=== PATIENT | female | born 1945 | race Caucasian/White ===

== ENCOUNTER → 2020-07-25 09:29 | Outpatient (BNVA) | payer MEDICARE, SELFPAY | PROVIDERS: PCP Internal Medicine; Visit Provider Internal Medicine | DX: J44.9 Chronic obstructive pulmonary disease, unspecified (principal); J30.9 Allergic rhinitis, unspecified | CPT/HCPCS: 99212 ==

== ENCOUNTER → 2020-11-07 09:30 | Outpatient (BNVA) | payer MEDICARE, SELFPAY | PROVIDERS: PCP Internal Medicine; Visit Provider Internal Medicine | DX: J44.9 Chronic obstructive pulmonary disease, unspecified (principal); J30.9 Allergic rhinitis, unspecified; Z79.899 Other long term (current) drug therapy | CPT/HCPCS: 99212 ==

== ENCOUNTER 2020-11-21 09:43 | Outpatient (REF) | payer MEDICARE, SELFPAY ==
--- NOTE | ~2020-11-21 | XR_ITS ---
EXAMINATION: XR CHEST CLINICAL INFORMATION: Bronchiectasis, uncomplicated. COMPARISON: Chest done on 09/29/2019. TECHNIQUE: 2 views of the chest were obtained. FINDINGS: Peribronchial thickening and nodularities are present at both mid to lower and right upper lung field, appears similar to prior study. No dense airspace consolidation. The cardiac mediastinal silhouette is within normal limit. No evidence of any pleural effusion or pneumothorax. XR/XR chest 2V IMPRESSION: Abnormal radiographs of the chest showing peribronchial thickening and nodularity, appear similar to prior study dated 09/29/2019.
== END 2020-11-21 09:44 | disposition home or self-care (01) ==
LOC: HO.XRAY 09:43
PROVIDERS: PCP Internal Medicine; Visit Provider Internal Medicine
DX: J44.9 Chronic obstructive pulmonary disease, unspecified (principal); J30.9 Allergic rhinitis, unspecified; Z79.899 Other long term (current) drug therapy
CPT/HCPCS: 71046; 99212

== ENCOUNTER → 2021-01-16 09:58 | Outpatient (BNVA) | payer MEDICARE, SELFPAY | PROVIDERS: PCP Physician Assistant Medical; Visit Provider Internal Medicine | DX: J44.9 Chronic obstructive pulmonary disease, unspecified (principal); J47.9 Bronchiectasis, uncomplicated; J30.9 Allergic rhinitis, unspecified | CPT/HCPCS: 99212 ==

== ENCOUNTER → 2021-03-16 09:27 | Outpatient (BNVA) | payer MEDICARE, SELFPAY | PROVIDERS: PCP Physician Assistant Medical; Visit Provider Internal Medicine | DX: J42 Unspecified chronic bronchitis (principal); J47.9 Bronchiectasis, uncomplicated; J30.9 Allergic rhinitis, unspecified | CPT/HCPCS: 99212 ==

== ENCOUNTER → 2021-05-11 10:19 | Outpatient (BNVA) | payer MEDICARE, SELFPAY | PROVIDERS: PCP Physician Assistant Medical; Visit Provider Internal Medicine | DX: J30.9 Allergic rhinitis, unspecified (principal); J47.9 Bronchiectasis, uncomplicated; J44.1 Chronic obstructive pulmonary disease with (acute) exacerbation | CPT/HCPCS: 99212 ==

== ENCOUNTER → 2021-06-07 09:43 | Outpatient (BNVA) | payer MEDICARE, SELFPAY | PROVIDERS: PCP Physician Assistant Medical; Visit Provider Internal Medicine | DX: J44.1 Chronic obstructive pulmonary disease with (acute) exacerbation (principal); J42 Unspecified chronic bronchitis; J47.9 Bronchiectasis, uncomplicated; J30.9 Allergic rhinitis, unspecified | CPT/HCPCS: 99212 ==

== ENCOUNTER → 2021-11-14 11:25 | Outpatient (BNVA) | payer MEDICARE, SELFPAY | PROVIDERS: PCP Physician Assistant Medical; Visit Provider Internal Medicine | DX: J43.9 Emphysema, unspecified (principal); J20.9 Acute bronchitis, unspecified; J47.9 Bronchiectasis, uncomplicated; J01.90 Acute sinusitis, unspecified | CPT/HCPCS: 99212 ==

== ENCOUNTER → 2021-12-05 09:32 | Outpatient (BNVA) | payer MEDICARE, SELFPAY | PROVIDERS: PCP Physician Assistant Medical; Visit Provider Internal Medicine | DX: J44.9 Chronic obstructive pulmonary disease, unspecified (principal); J47.9 Bronchiectasis, uncomplicated; J30.9 Allergic rhinitis, unspecified; Z79.899 Other long term (current) drug therapy | CPT/HCPCS: 99212 ==

== ENCOUNTER → 2022-06-12 09:24 | Outpatient (BNVA) | payer MEDICARE, SELFPAY | PROVIDERS: PCP Physician Assistant Medical; Visit Provider Internal Medicine | DX: J47.9 Bronchiectasis, uncomplicated (principal); J30.9 Allergic rhinitis, unspecified | CPT/HCPCS: 99212 ==

== ENCOUNTER 2022-12-04 09:23 | Outpatient (REF) | payer MEDICARE, SELFPAY ==
[2022-12-04 12:28] LABS: Alanine Aminotransferase 21 U/L (0-31); Albumin Level 4.1 g/dL (3.5-5.0); Alkaline Phosphatase 80 U/L (39-117); Anion Gap 15 (12-20); Aspartate Amino Transferase 26 U/L (5-31); Bilirubin Total 0.7 mg/dL (0.0-1.0); Blood Urea Nitrogen 12 mg/dL (9-16); Calcium 9.5 mg/dL (8.4-10.2); Carbon Dioxide 27 mmol/L (22-29); Chloride 103 mmol/L (96-108); Estimated Glomerular Filt Rate > 60; Glucose Random 87 mg/dL (60-115); Potassium 4.5 mmol/L (3.3-5.1); Sodium 140 mmol/L (135-145); Total Protein 7.3 g/dL (6.5-8.0)
[2022-12-04 12:50] LABS: Folate > 20.0 ng/mL (> or = 4.0); T4 Thyroxine 4.5 ug/dL (4.5-12.0); Thyroid Stimulating Hormone 2.33 uIU/mL (0.32-4.0); Vitamin B12 1043 pg/mL (200-900)
[2022-12-10 00:48] LABS: Methylmalonic Acid 112 nmol/L (87-318)
== END 2022-12-04 09:24 | disposition home or self-care (01) ==
LOC: HO.LAB 09:23
PROVIDERS: PCP Physician Assistant Medical; Visit Provider Psychiatry & Neurology Neurology
DX: G31.84 Mild cognitive impairment of uncertain or unknown etiology (principal)
CPT/HCPCS: 36415; 80053; 82607; 82746; 83921; 84436; 84443

== ENCOUNTER → 2022-12-05 09:38 | Outpatient (BNVA) | payer MEDICARE, SELFPAY | PROVIDERS: PCP Physician Assistant Medical; Visit Provider Internal Medicine | DX: J44.9 Chronic obstructive pulmonary disease, unspecified (principal); J47.9 Bronchiectasis, uncomplicated; J30.9 Allergic rhinitis, unspecified | CPT/HCPCS: 99212 ==

== ENCOUNTER 2022-12-07 08:46 | Outpatient (REF) | payer MEDICARE, SELFPAY ==
--- NOTE | ~2022-12-07 | CT_ITS ---
EXAMINATION: CT HEAD WITHOUT CONTRAST CLINICAL INFORMATION: Mild cognitive impairment with memory loss COMPARISON: None available. TECHNIQUE: Contiguous axial imaging was performed from the skull base to vertex without intravenous administration of contrast. This CT examination was performed using dose optimization techniques as appropriate, variously including the following: *Automated exposure control *Adjustment of mA and/or kV according to patient size (this includes techniques or standardized protocols for targeted exams where dose is matched to indication/reason for exam; i.e. extremities or head) *Use of iterative reconstruction technique DLP: 698 mGy-cm FINDINGS: Mild diffuse commensurate prominence of ventricles and sulci is noted. Mild scattered supratentorial subcortical and periventricular white matter patchy hypodensities are visualized. No intrarenal hemorrhage, tumors or definitive acute infarcts noted. No disproportionate prominence of the temporal horns of the lateral ventricles. Mild scattered calcific atherosclerotic plaques within the cavernous portions of the internal carotid arteries. Bilateral ocular lens extractions. No significant opacification of the visualized paranasal sinuses, mastoid air cells and middle ear cavities. CT/CT head/brain wo IV con IMPRESSION: 1. No acute intracranial abnormalities. 2. Mild white matter chronic small vessel ischemic changes. 3. Mild diffuse parenchymal volume loss the brain. No evidence of gross disproportional volume loss of the hippocampal formations.
== END 2022-12-07 08:47 | disposition home or self-care (01) ==
LOC: HO.CT 08:46
PROVIDERS: Visit Provider Psychiatry & Neurology Neurology
DX: G31.84 Mild cognitive impairment of uncertain or unknown etiology (principal)
CPT/HCPCS: 70450

== ENCOUNTER 2023-06-13 09:21 | Outpatient (AMB) | payer MEDICARE, SELFPAY ==
[2023-06-13 09:27] VITALS: BP 102/60; PULSE 88; O2SAT 97; BMI 16.3
--- NOTE | 2023-06-13 09:27 | MHC.OFFVIS ---
Intake Vital Signs 06/13/23 09:27 Height 5 ft 3 in Weight 92 lb BMI 16.3 BP 102/60 Blood Pressure Location Lt brachial Position Sitting Pulse 88 Pulse Source Pulse Oximeter Pulse Oximetry (%) 97 Oxygen Delivery Method Room Air Intake Visit Reasons: COPD Intake Note: pt is here for follow up and states her breathing is not bad, but some coughing with dark colored phelgm Medical Administrative Assistant Required: No Allergies No Known Allergies Allergy (Verified 06/13/23 09:42) Medication List - Last Reconciled 06/13/23 by Bernardo Horton MD albuterol sulfate 90 mcg/actuation 2 puffs PO Q6H PRN atorvastatin 10 mg PO DAILY brimonidine 0.15% 1 drp ophthalmic (eye) ONCE dorzolamide-timolol 22.3-6.8 mg/mL 1 drp ophthalmic (eye) BID fluticasone propionate 50 mcg/actuation 1 spray intranasal BID rxhwapkulch-azftjbfev-tsijgpas 100-62.5-25 mcg (Trelegy Ellipta) 1 inh inhalation DAILY guaifenesin ER (Mucinex) 1,200 mg PO ONCE PRN lorazepam 1 mg PO DAILY PRN multivitamin 1 tab PO DAILY netarsudil-latanoprost 0.02-0.005 % drps ophthalmic (eye) trazodone 50 mg PO BEDTIME PRN Do you need a note to return to daycare/school/sports/work: No HPI COPD HPI Details Macy is 78 years old female of a thin build, comes for her regular follow-up after 6 months for COPD. She has low-grade upper respiratory allergies the around the year, and has intermittent cough, occasionally coughing up brownish phlegm. Shortness of breath has remained stable.. She has had no respiratory infection in the last 6 months. Her treatment regimen is simple including Trelegy 1 inhalation daily and ProAir just as needed. She also uses Mucinex p.r.n.. [facility] Medical History Acute rhinosinusitis COPD exacerbation Chronic bronchitis Bronchiectasis COPD (chronic obstructive pulmonary disease) Allergic rhinitis Social History Patient Tobacco Use Status: Former Tobacco user Years Smoked: 20 Review of Systems Const All systems reviewed & are unremarkable except as noted in HPI and below Eyes Reports no additional complaints ENT Reports nasal congestion (Mild intermittent especially in the morning hours) and Reports nasal discharge Card Denies chest pain, Denies irregular heart rhythm and Denies leg edema Resp Reports as per HPI GI Reports no additional complaints Reports no additional complaints Musc Reports no additional complaints Skin/Breast Reports system reviewed and no additional complaints, except as documented Neuro Reports no additional complaints Psych Reports no additional complaints Physical Exam Vital Signs: Last Vital Signs Pulse 88 06/13/23 09:27 BP 102/60 06/13/23 09:27 Pulse Ox 97 06/13/23 09:27 Oxygen Delivery Method Room Air 06/13/23 09:27 BMI result Body Mass Index 16.3 Const Other: Sick-looking, but afebrile, General: comfortable, no acute distress, alert and awake Orientation/consciousness: patient oriented x3 HEENT Head: Yes normal to inspection General nose exam: No nasal polyps present and No nasal discharge present Face and sinus: Yes sinuses nontender Mouth: oropharynx normal Throat: Yes posterior oropharynx normal Eyes General: appearance normal, both eyes and all related structures Neck Neck: Yes normal visual inspection, Yes no lymphadenopathy, Yes trachea midline and Yes no JVD Thyroid: Thyroid normal Chest Chest palpation & inspection: normal inspection of the chest, normal palpation of entire chest wall and no tenderness Resp Other: Percussion note is resonant, breath sounds are distant with prolonged expiratory phase, No wheezes or creps are heard today . Cardio Palpation: normal PMI Rate: regular rate Rhythm: regular rhythm Heart sounds: no gallops and no murmurs GI Palpation (GI): Soft to palpation, nontender, No hepatosplenomegaly present and no masses Auscultation: normal bowel sounds Back/Spine/Pelvis Thoracic/Lumbar Spine: thoracic and lumbar spine normal to inspection Skin General skin exam: no rashes or lesions noted Neuro General: patient oriented x3 and no focal motor deficits Cranial nerves: Yes CN's II-XII intact bilaterally Extrem General: Yes normal to inspection, Yes no clubbing, cyanosis or edema and Yes no calf tenderness Psych Speech and movement: Normal speech and movement present Assessment & Plan Assessment & Plan (1) COPD (chronic obstructive pulmonary disease): Comment: MILD MODERATE ,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 ON CHEST X-RAY SHE HAS HYPERINFLATED LUNGS. [place] : [place] GUAMANEPTA ONE INH DAILY AND ALBUTEROL( PROAIR ) 2 PUFFS Q 4-6 HOURS P.R.N. Code(s): J44.9 - Chronic obstructive pulmonary disease, unspecified (2) Bronchiectasis: Comment: SHE DOES HAVE SOME BRONCHIECTASIS IN THE LOWER LOBES ESPECIALLY IN THE RIGHT LOWER LOBE AREA. SHE IS WELL AWARE OF THIS . WHENEVER SHE GETS AN ACUTE EXACERBATION OF COPD SHE IS PRONE TO GET RESPIRATORY INFECTION, AND WILL NEED A COURSE OF ANTIBIOTICS AT THAT TIME . IN THE MEANTIME , CONT. MUCINEX 600 MG BID AND USE HUMIDIFICATION IN THE HOUSE DURING WINTER . Code(s): J47.9 - Bronchiectasis, uncomplicated (3) Allergic rhinitis: Comment: VERY MILD, INTERMITTENT. MAY USE FLONASE-50 2 SPRAY EACH NOSTRIL DAILY ONLY P.R.N.. Code(s): J30.9 - Allergic rhinitis, unspecified Coding Level of Care Code Est Pt Level 3 (95050) Diagnoses COPD (chronic obstructive pulmonary disease) J44.9 Bronchiectasis J47.9 Allergic rhinitis J30.9
== END 2023-06-13 09:41 | disposition home or self-care (01) ==
PROVIDERS: PCP Physician Assistant Medical; Visit Provider Internal Medicine
DX: J44.9 Chronic obstructive pulmonary disease, unspecified (principal); J30.9 Allergic rhinitis, unspecified
CPT/HCPCS: 99213

== ENCOUNTER → 2023-06-13 09:21 | Outpatient (BNVA) | payer MEDICARE, SELFPAY | PROVIDERS: Visit Provider Internal Medicine | DX: J44.9 Chronic obstructive pulmonary disease, unspecified (principal); J47.9 Bronchiectasis, uncomplicated; J30.9 Allergic rhinitis, unspecified; Z87.891 Personal history of nicotine dependence | CPT/HCPCS: 99212 ==

== ENCOUNTER 2023-12-16 09:28 | Outpatient (AMB) | payer MEDICARE, SELFPAY ==
[2023-12-16 09:33] VITALS: BP 130/72; PULSE 93; O2SAT 96; BMI 16.8
--- NOTE | 2023-12-16 09:33 | A.OFFVIS_ITS ---
Vital Signs 12/16/23 09:33 Height 5 ft 3 in Weight 94 lb 12.78 oz BMI 16.8 BP 130/72 Blood Pressure Location Lt brachial Position Sitting Pulse 93 Pulse Source Pulse Oximeter Pulse Oximetry (%) 96 Oxygen Delivery Method Room Air Intake Visit Reasons: COPD Intake Note: pt is here for follow up and states since her last visit, she has had pneumonia x2, and now still has a cough with production dark in color. This happened in early spring. Technical Intern Required: No Allergies No Known Allergies Allergy (Verified 12/16/23 09:42) Medication List - Last Reconciled 12/16/23 by Bernardo Horton MD albuterol sulfate 90 mcg/actuation 2 puffs PO Q6H PRN atorvastatin 10 mg PO DAILY brimonidine 0.15% 1 drp ophthalmic (eye) ONCE dorzolamide-timolol 22.3-6.8 mg/mL 1 drp ophthalmic (eye) BID snjijnwtuhu-jttqitrmv-etcniivr 100-62.5-25 mcg (Trelegy Ellipta) 1 inh inhalation DAILY guaifenesin ER (Mucinex) 1,200 mg PO ONCE PRN lorazepam 1 mg PO DAILY PRN multivitamin 1 tab PO DAILY netarsudil-latanoprost 0.02-0.005 % drps ophthalmic (eye) trazodone 50 mg PO BEDTIME PRN Do you need a note to return to daycare/school/sports/work: No HPI HPI COPD: Details: ANDREZ IS 78 YEARS OLD VERY PLEASANT FEMALE. COMES FOR FOLLOW-UP AFTER 6 MONTHS. SHE SAID A FEW MONTHS AGO SHE WAS TREATED FOR QUESTIONABLE PNEUMONIA WITH COURSE OF PREDNISONE AND ANTIBIOTICS 2 TIMES. AT PRESENT SHE IS DOING WELL AND REMAINS STABLE. SHE HAS MILD INTERMITTENT NASAL CONGESTION WITH POSTNASAL DRIP. ALSO DEVELOPS BOUTS OF COUGH WITH THICK MUCUS OFF AND ON. SHE WALKS AROUND IN THE HOUSE AND OUTSIDE FOR 1 OR 2 BLOCKS WITHOUT ANY PROBLEM. OVERALL SHE HAS REMAINED STABLE . COUNTS INCLUDE 234 BEDS AT THE [facility] Medical History Acute rhinosinusitis COPD exacerbation Chronic bronchitis Bronchiectasis COPD (chronic obstructive pulmonary disease) Allergic rhinitis Social History Patient Tobacco Use Status: Former Tobacco user Years Smoked: 20 Review of Systems Const All systems reviewed & are unremarkable except as noted in HPI and below Eyes Reports no additional complaints ENT Reports nasal congestion (Mild intermittent especially in the morning hours) and Reports nasal discharge Card Denies chest pain, Denies irregular heart rhythm and Denies leg edema Resp Reports as per HPI GI Reports no additional complaints Reports no additional complaints Musc Reports no additional complaints Skin/Breast Reports system reviewed and no additional complaints, except as documented Neuro Reports no additional complaints Psych Reports no additional complaints Physical Exam Vital Signs: Last Vital Signs Pulse 93 12/16/23 09:33 BP 130/72 12/16/23 09:33 Pulse Ox 96 12/16/23 09:33 Oxygen Delivery Method Room Air 12/16/23 09:33 BMI result Body Mass Index 16.8 Const Other: Sick-looking, but afebrile, General: comfortable, no acute distress, alert and awake Orientation/consciousness: patient oriented x3 HEENT Head: Yes normal to inspection General nose exam: No nasal polyps present and No nasal discharge present Face and sinus: Yes sinuses nontender Mouth: oropharynx normal Throat: Yes posterior oropharynx normal Eyes General: appearance normal, both eyes and all related structures Neck Neck: Yes normal visual inspection, Yes no lymphadenopathy, Yes trachea midline and Yes no JVD Thyroid: Thyroid normal Chest Chest palpation & inspection: normal inspection of the chest, normal palpation of entire chest wall and no tenderness Resp Other: Percussion note is resonant, breath sounds are distant with prolonged expiratory phase, No wheezes or creps are heard today . Cardio Palpation: normal PMI Rate: regular rate Rhythm: regular rhythm Heart sounds: no gallops and no murmurs GI Palpation (GI): Soft to palpation, nontender, No hepatosplenomegaly present and no masses Auscultation: normal bowel sounds Back/Spine/Pelvis Thoracic/Lumbar Spine: thoracic and lumbar spine normal to inspection Skin General skin exam: no rashes or lesions noted Neuro General: patient oriented x3 and no focal motor deficits Cranial nerves: Yes CN's II-XII intact bilaterally Extrem General: Yes normal to inspection, Yes no clubbing, cyanosis or edema and Yes no calf tenderness Psych Speech and movement: Normal speech and movement present Assessment & Plan Assessment & Plan (1) COPD (chronic obstructive pulmonary disease): Comment: MILD MODERATE ,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 ON CHEST X-RAY SHE HAS HYPERINFLATED LUNGS. Code(s): J44.9 - Chronic obstructive pulmonary disease, unspecified Category: Medical Plan: TX : TRELEGY ELLEPTA ONE INH DAILY AND ALBUTEROL( PROAIR ) 2 PUFFS Q 4-6 HOURS P.R.N. MAY ALSO USE MUCINEX,OTC 400 MG TABLET B.I.D. IF THE MUCUS IS THICK AND DIFFICULT TO EXPECTORATES. ALSO USE STEAM INHALATIONS P.R.N.. (2) Allergic rhinitis: Comment: VERY MILD, INTERMITTENT. Code(s): J30.9 - Allergic rhinitis, unspecified Category: Medical Plan: MAY USE FLONASE-50 2 SPRAY EACH NOSTRIL DAILY ONLY P.R.N.. Coding Level of Care Code Est Pt Level 3 (12984) Diagnoses COPD (chronic obstructive pulmonary disease) J44.9 Allergic rhinitis J30.9
== END 2023-12-16 09:54 | disposition home or self-care (01) ==
PROVIDERS: PCP Physician Assistant Medical; Visit Provider Internal Medicine
DX: J44.9 Chronic obstructive pulmonary disease, unspecified (principal); J30.9 Allergic rhinitis, unspecified
CPT/HCPCS: 99213

== ENCOUNTER → 2023-12-16 09:28 | Outpatient (BNVA) | payer MEDICARE, SELFPAY | PROVIDERS: PCP Physician Assistant Medical; Visit Provider Internal Medicine | DX: J44.9 Chronic obstructive pulmonary disease, unspecified (principal); J30.9 Allergic rhinitis, unspecified | CPT/HCPCS: 99212 ==

== ENCOUNTER 2024-06-23 09:32 | Outpatient (AMB) | payer MEDICARE, SELFPAY ==
[2024-06-23 09:36] VITALS: BP 130/78; PULSE 91; RESP 16; O2SAT 95; BMI 16.6
--- NOTE | 2024-06-23 09:36 | MHC.OFFVIS ---
Vital Signs 06/23/24 09:36 Height 5 ft 3 in Weight 94 lb BMI 16.6 BP 130/78 Blood Pressure Location Lt brachial Position Sitting Respiration 16 Pulse 91 Pulse Source Pulse Oximeter Pulse Oximetry (%) 95 Oxygen Delivery Method Room Air Intake Visit Reasons: COPD Allergies No Known Allergies Allergy (Verified 06/23/24 09:42) Medication List - Last Reconciled 06/23/24 by Bernardo Horton MD albuterol sulfate 90 mcg/actuation 2 puffs PO Q6H PRN atorvastatin 10 mg PO DAILY brimonidine 0.15% 1 drp ophthalmic (eye) ONCE dorzolamide-timolol 22.3-6.8 mg/mL 1 drp ophthalmic (eye) BID shftfmfhusb-mphlnaeaq-fdpmzrhz 100-62.5-25 mcg (Trelegy Ellipta) 1 inh inhalation DAILY guaifenesin ER (Mucinex) 1,200 mg PO ONCE PRN lorazepam 1 mg PO DAILY PRN multivitamin 1 tab PO DAILY netarsudil-latanoprost 0.02-0.005 % drps ophthalmic (eye) trazodone 50 mg PO BEDTIME PRN Do you need a note to return to daycare/school/sports/work: No HPI HPI COPD: Details: 79 YEARS OLD VERY PLEASANT FEMALE OF A THIN BUILD, HAS ADVANCED CHRONIC OBSTRUCTIVE PULMONARY DISEASE. COPD HAS REMAINED VERY STABLE WITHOUT ANY ACUTE EXACERBATION. SHE DOES HAVE INTERMITTENT BOUTS OF COUGH AND WHEEZING, WHICH IS RELIEVED BY USING ALBUTEROL INHALER. NORMALLY SHE CONTINUES TO USE TRELEGY INHALATION ONLY ONCE A DAY. SHE GETS AROUND AND REMAINS VERY ACTIVE DURING THE DAYTIME. WEIGHT 94 LB BUT REMAINS STABLE. [facility] Medical History Acute rhinosinusitis COPD exacerbation Chronic bronchitis Bronchiectasis COPD (chronic obstructive pulmonary disease) Allergic rhinitis Social History Patient Tobacco Use Status: Former Tobacco user Years Smoked: 20 Review of Systems Const All systems reviewed & are unremarkable except as noted in HPI and below Eyes Reports no additional complaints ENT Reports nasal congestion (Mild intermittent especially in the morning hours) and Reports nasal discharge Card Denies chest pain, Denies irregular heart rhythm and Denies leg edema Resp Reports as per HPI GI Reports no additional complaints Reports no additional complaints Musc Reports no additional complaints Skin/Breast Reports system reviewed and no additional complaints, except as documented Neuro Reports no additional complaints Psych Reports no additional complaints Physical Exam Vital Signs: Last Vital Signs Pulse 91 06/23/24 09:36 Resp 16 06/23/24 09:36 BP 130/78 06/23/24 09:36 Pulse Ox 95 06/23/24 09:36 Oxygen Delivery Method Room Air 06/23/24 09:36 BMI result Body Mass Index 16.6 Const Other: Sick-looking, but afebrile, General: comfortable, no acute distress, alert and awake Orientation/consciousness: patient oriented x3 HEENT Head: Yes normal to inspection General nose exam: No nasal polyps present and No nasal discharge present Face and sinus: Yes sinuses nontender Mouth: oropharynx normal Throat: Yes posterior oropharynx normal Eyes General: appearance normal, both eyes and all related structures Neck Neck: Yes normal visual inspection, Yes no lymphadenopathy, Yes trachea midline and Yes no JVD Thyroid: Thyroid normal Chest Chest palpation & inspection: normal inspection of the chest, normal palpation of entire chest wall and no tenderness Resp Other: Percussion note is resonant, breath sounds are distant with prolonged expiratory phase, No wheezes or creps are heard today . Cardio Palpation: normal PMI Rate: regular rate Rhythm: regular rhythm Heart sounds: no gallops and no murmurs GI Palpation (GI): Soft to palpation, nontender, No hepatosplenomegaly present and no masses Auscultation: normal bowel sounds Back/Spine/Pelvis Thoracic/Lumbar Spine: thoracic and lumbar spine normal to inspection Skin General skin exam: no rashes or lesions noted Neuro General: patient oriented x3 and no focal motor deficits Cranial nerves: Yes CN's II-XII intact bilaterally Extrem General: Yes normal to inspection, Yes no clubbing, cyanosis or edema and Yes no calf tenderness Psych Speech and movement: Normal speech and movement present Assessment & Plan Assessment & Plan (1) COPD (chronic obstructive pulmonary disease): Comment: MILD MODERATE ,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 ON CHEST X-RAY SHE HAS HYPERINFLATED LUNGS. REMAINS WELL CONTROLLED AND STABLE WITH USE OF TRELEGY 1 INHALATION DAILY. Code(s): J44.9 - Chronic obstructive pulmonary disease, unspecified Category: Medical Plan: ADVISED TO CONTINUE USING TRELEGY ONCE A DAY USE ALBUTEROL HFA 2 PUFFS Q 6 HOURS ONLY P.R.N.. (2) Bronchiectasis: Comment: SHE DOES HAVE SOME BRONCHIECTASIS IN THE LOWER LOBES ESPECIALLY IN THE RIGHT LOWER LOBE AREA. SHE IS WELL AWARE OF THIS . WHENEVER SHE GETS AN ACUTE EXACERBATION OF COPD SHE IS PRONE TO GET RESPIRATORY INFECTION, AND WILL NEED A COURSE OF ANTIBIOTICS AT THAT TIME . Code(s): J47.9 - Bronchiectasis, uncomplicated Category: Medical Plan: CONT. MUCINEX 600 MG BID AND USE HUMIDIFICATION IN THE HOUSE DURING WINTER . (3) Allergic rhinitis: Comment: VERY MILD, INTERMITTENT. Code(s): J30.9 - Allergic rhinitis, unspecified Category: Medical Plan: MAY USE OTC ANTIHISTAMINIC SUCH CLARITIN OR CETIRIZINE 10 MG 1 TABLET PER DAY P.R.N. Coding Level of Care Code Est Pt Level 3 (67765) Diagnoses COPD (chronic obstructive pulmonary disease) J44.9 Bronchiectasis J47.9 Allergic rhinitis J30.9
== END 2024-06-23 09:48 | disposition home or self-care (01) ==
PROVIDERS: PCP Physician Assistant Medical; Visit Provider Internal Medicine
DX: J44.9 Chronic obstructive pulmonary disease, unspecified (principal); J47.9 Bronchiectasis, uncomplicated; J30.9 Allergic rhinitis, unspecified
CPT/HCPCS: 99213

== ENCOUNTER → 2024-06-23 09:32 | Outpatient (BNVA) | payer MEDICARE, SELFPAY | PROVIDERS: PCP Physician Assistant Medical; Visit Provider Internal Medicine | DX: J44.9 Chronic obstructive pulmonary disease, unspecified (principal); J47.9 Bronchiectasis, uncomplicated; J30.9 Allergic rhinitis, unspecified | CPT/HCPCS: 99212 ==

== ENCOUNTER 2024-12-21 09:27 | Outpatient (AMB) | payer MEDICARE, SELFPAY ==
[2024-12-21 09:32] VITALS: BP 124/80; PULSE 81; O2SAT 96; BMI 17.0
--- NOTE | 2024-12-21 09:32 | MHC.OFFVIS ---
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: No Allergies No Known Allergies Allergy (Verified 12/21/24 09:37) Medication List - Last Reconciled 12/21/24 by Bernardo Horton MD albuterol sulfate 90 mcg/actuation 2 puffs PO Q6H PRN atorvastatin 10 mg PO DAILY brimonidine 0.15% 1 drp ophthalmic (eye) ONCE dorzolamide-timolol 22.3-6.8 mg/mL 1 drp ophthalmic (eye) BID ohozjakhzir-qrhkxzpen-pebqnzml 100-62.5-25 mcg (Trelegy Ellipta) 1 inh inhalation DAILY guaifenesin ER (Mucinex) 1,200 mg PO ONCE PRN lorazepam 1 mg PO DAILY PRN multivitamin 1 tab PO DAILY netarsudil-latanoprost 0.02-0.005 % drps ophthalmic (eye) trazodone 50 mg PO BEDTIME PRN Do you need a note to return to daycare/school/sports/work: No HPI HPI COPD: Details: This 79 years old very pleasant female has chronic obstructive pulmonary disease, predominantly due to pulmonary emphysema. She does have intermittent cough but mostly nonproductive. She does have mild nasal congestion off and on that may be contributing to her cough. She has mild shortness of breath when she walks around especially up hill or climbing stairs. Overall she has remained stable. Luckily she has had no recent respiratory infection or exacerbation. [facility] Medical History Acute rhinosinusitis COPD exacerbation Chronic bronchitis Bronchiectasis COPD (chronic obstructive pulmonary disease) Allergic rhinitis Social History Patient Tobacco Use Status: Former Tobacco user Years Smoked: 20 Review of Systems Const All systems reviewed & are unremarkable except as noted in HPI and below Eyes Reports no additional complaints ENT Reports nasal congestion (Mild intermittent especially in the morning hours) and Reports nasal discharge Card Denies chest pain, Denies irregular heart rhythm and Denies leg edema Resp Reports as per HPI GI Reports no additional complaints Reports no additional complaints Musc Reports no additional complaints Skin/Breast Reports system reviewed and no additional complaints, except as documented Neuro Reports no additional complaints Psych Reports no additional complaints Physical Exam Vital Signs: Last Vital Signs Pulse 81 12/21/24 09:32 BP 124/80 12/21/24 09:32 Pulse Ox 96 12/21/24 09:32 Oxygen Delivery Method Room Air 12/21/24 09:32 BMI result Body Mass Index 17.0 Const Other: Sick-looking, but afebrile, General: comfortable, no acute distress, alert and awake Orientation/consciousness: patient oriented x3 HEENT Head: Yes normal to inspection General nose exam: No nasal polyps present and No nasal discharge present Face and sinus: Yes sinuses nontender Mouth: oropharynx normal Throat: Yes posterior oropharynx normal Eyes General: appearance normal, both eyes and all related structures Neck Neck: Yes normal visual inspection, Yes no lymphadenopathy, Yes trachea midline and Yes no JVD Thyroid: Thyroid normal Chest Chest palpation & inspection: normal inspection of the chest, normal palpation of entire chest wall and no tenderness Resp Other: Percussion note is resonant, breath sounds are distant with prolonged expiratory phase, No wheezes or creps are heard today . Cardio Palpation: normal PMI Rate: regular rate Rhythm: regular rhythm Heart sounds: no gallops and no murmurs GI Palpation (GI): Soft to palpation, nontender, No hepatosplenomegaly present and no masses Auscultation: normal bowel sounds Back/Spine/Pelvis Thoracic/Lumbar Spine: thoracic and lumbar spine normal to inspection Skin General skin exam: no rashes or lesions noted Neuro General: patient oriented x3 and no focal motor deficits Cranial nerves: Yes CN's II-XII intact bilaterally Extrem General: Yes normal to inspection, Yes no clubbing, cyanosis or edema and Yes no calf tenderness Psych Speech and movement: Normal speech and movement present Assessment & Plan Assessment & Plan (1) Chronic bronchitis: Comment: PER CHEST X-RAY, SHE HAS THICKENING OF THE BRONCHIAL [place] AND [place] BRONCHIAL THICKENING WITH SOME NODULARITY, REPRESENTING CHRONIC BRONCHITIS. TX ; CONTINUE MUCINEX 600 MG B.I.D. PLENTY OF FLUIDS. MAY USE STEAM INHALATIONS B.I.D. P.R.N.. Code(s): J42 - Unspecified chronic bronchitis Category: Medical Plan: These findings are consistent with chronic bronchitis. Treatment as under COPD. (2) Bronchiectasis: Comment: SHE DOES HAVE SOME BRONCHIECTASIS IN THE LOWER LOBES ESPECIALLY IN THE RIGHT LOWER LOBE AREA. SHE IS WELL AWARE OF THIS . Code(s): J47.9 - Bronchiectasis, uncomplicated Category: Medical Plan: WHENEVER SHE GETS AN ACUTE EXACERBATION OF COPD SHE IS PRONE TO GET RESPIRATORY INFECTION, AND WILL NEED A COURSE OF ANTIBIOTICS AT THAT TIME . (3) COPD (chronic obstructive pulmonary disease): Comment: MILD MODERATE ,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 ON CHEST X-RAY SHE HAS HYPERINFLATED LUNGS. REMAINS WELL CONTROLLED AND STABLE WITH USE OF TRELEGY 1 INHALATION DAILY. MAIN COMPLAINT IS THAT SHE STILL GETS BOUTS OF COUGH AND FEELS THAT IT IS HARD TO EXPECTORATE THE MUCUS. Code(s): J44.9 - Chronic obstructive pulmonary disease, unspecified Category: Medical Plan: Continue to use Trelegy Ellipta 1 inhalation daily. Albuterol HFA 2 puffs Q 6 hours p.r.n.. Mucinex 1200 mg b.i.d. p.r.n. for increased cough. Medications: New lnlimqrncvw-nwfdntqlw-yjibqgqd 100-62.5-25 mcg (Trelegy Ellipta) 1 inh inhalation DAILY 60 ea 5RF copd 30 days guaifenesin ER (Mucinex) 1,200 mg PO BID 30 tabs 4RF cough/copd 15 days Coding Level of Care Code Est Pt Level 3 (04963) Diagnoses Chronic bronchitis J42 Bronchiectasis J47.9 COPD (chronic obstructive pulmonary disease) J44.9
--- OUTSIDE RECORDS SUMMARY | 2024-12-21 09:37 | XMS_ITS | Clinical Summary ---
Author Organization [address] Address [address] [place] [id number] Phone Care Team Providers Care Line Tender Name Role Phone Anrde Katz Primary Care Provider [phone] Allergies No known active allergies Medications albuterol sulfate (ProAir RespiClick) 90 mcg/actuation aerosol powdr breath activated Inhale by mouth. Active albuterol 2.5 mg /3 mL (0.083 %) nebulizer solution Inhale 3 mL (2.5 mg total) by mouth every 4 (four) hours if needed for wheezing or shortness of breath. 6 Active acetaminophen (TYLENOL) 500 mg tablet Take 1 tablet (500 mg total) by mouth. 2 Active bimatoprost (LUMIGAN) 0.01 % ophthalmic drops Administer 1 drop into affected eye(s). Active brimonidine (ALPHAGAN P) 0.15 % ophthalmic solution Administer 1 drop into affected eye(s). 6 Active brimonidine (ALPHAGAN) 0.2 % ophthalmic solution Administer 1 drop into both eyes 2 (two) times a day. 4 Active dorzolamide-ti moloL (COSOPT) 22.3-6.8 mg/mL ophthalmic solution INSTILL 1 DROP INTO BOTH AFFECTED EYES TWICE DAILY Active estradioL (ESTRACE) 0.01 % (0.1 mg/gram) vaginal cream Please use 0.5g, pea-sized amount on your finger and place inside the vagina for 2 weeks at night, and then decrease to twice a week at night (Mondays and ) 3 Active Vyzulta 0.024 % drops INSTILL 1 DROP INTO BOTH EYES DAILY Active magnesium oxide (MAG-OX) 400 mg magnesium tablet Take 1 tablet (400 mg total) by mouth 1 (one) time each day. 4 Active naproxen (NAPROSYN) 375 mg tablet Take 1 tablet (375 mg total) by mouth 2 (two) times a day with meals. 9 Active Rhopressa 0.02 % drops Administer 1 drop into both eyes. at bedtime Active Gemtesa 75 mg tablet tablet Take 1 tablet (75 mg total) by mouth 1 (one) time each day. Active calcium carbonate (CALTRATE 600 ORAL) 1 TABLET DAILY Activ e multivitamin (MULTIPLE VITAMINS ORAL) 1 po qd 8 Active IBUPROFEN ORAL Take 1 Tablet by mouth every 6 hours as needed for Pain for up to 30 days. 2 Active UNABLE TO FIND by Does not apply route. Active atorvastatin (LIPITOR) 10 mg tablet Take 1 tablet (10 mg total) by mouth 1 (one) time each day. 60 tablet 4 Active traZODone (DESYREL) 50 mg tablet Take 1 tablet (50 mg total) by mouth at bedtime. 90 tablet 3 5 Active amitriptyline (ELAVIL) 25 mg tablet Take 1 tablet (25 mg total) by mouth at bedtime. 90 tablet 3 5 Active sertraline (ZOLOFT) 50 mg tablet Take 1 tablet (50 mg total) by mouth 1 (one) time each day. 90 tablet 1 5 Active Trelegy Ellipta 100-62.5-25 mcg inhaler Inhale 1 puff by mouth once daily 60 each 5 Active LORazepam (ATIVAN) 1 mg tablet Take 1 tablet (1 mg total) by mouth 1 (one) time each day if needed for anxiety. Max Daily Amount: 1 mg 28 tablet 5 Active LORazepam (ATIVAN) 1 mg tablet Take 1 tablet (1 mg total) by mouth 1 (one) time each day if needed for anxiety. Max Daily Amount: 1 mg 28 tablet 5 12/09/19 25 Discontinu ed(Reorder ) Active Problems Problem Noted Date Diagnosed Date Chronic bronchitis ([facility] V24, [facility] V28) Abnormal CT scan, chest 05/20/2017 Asbestos exposure 05/20/2017 Bronchiectasis with acute lo wer respiratory infection ([facility] V24, [facility] V28) 05/20/2017 Ground glass opacity present on imaging of lung 05/20/2017 Insomnia 10/19/2016 Chronic cough 05/01/2016 Anxiety 01/20/2016 Osteoporosis 06/24/2015 Overview (09/25/2024): tx with fosamax x 10 years discontinued 2012 restarted 2019 Lung nodule 08/31/2014 Hyperlipidemia 07/02/2008 Bronchiectasis ([facility] V24, [facility] V28) 2007 Depression 10/29/2005 Dysuria 10/29/2005 Headache 10/29/2005 Encounters Date Type Department Care Team Description 09/25/2024 8:15 AM EST Office Visit Adult Medicine [address] [id number] Andre Katz PA Osteoporosis, unspecified osteoporosis type, unspecified pathological fracture presence (Primary Dx); Anxiety; Asbestos exposure; Bronchiectasis with acute lower respiratory infection ([facility] V24, [facility] V28); Other hyperlipidemia; Depression, unspecified depression type; Bronchiectasis without complication ([facility] V24, [facility] V28); Need for prophylactic vaccination and inoculation against influenza; Encounter for therapeutic drug level monitoring from Last 3 Months Immunizations Name Administration Dates Next Due H1N1 Inj Preservative Free 08/25/2009 Influenza Quadravalent, 0.5m l (Fluad) 65yo and older 06/12/2021 Influenza Quadravalent, 0.5m l (Fluzone High-dose) 65yo and older 05/30/2018 Influenza Split 04/06/2019 Influenza trivalent, 0.5mL ( Fluad) 65yo and older 09/25/2024,05/19/2022,04/19/2020,05/20 Influenza trivalent, 0.5mL, preservative free (Fluarix; FluLaval; Fluzone) ages 6mo and older (Afluria) 3 years and older 04/13/2016,05/05/2013,05/03/2012,05/20,05/19/2010,05/13/2009,06/09/2008 ,05/24/2007,05/13/2006,05/17/2005 Influenza, Unspecified 06/23/2015,04/26/2014, NEO/Adyuka SARS-CoV-2 COVID -19, vector-nr, [id number], preservative free 11/15/2020 PPD Test 09/20/2003 Pfizer (ages 12 & older) Biv alent, COVID-19 05/19/2022 Pfizer SARS-CoV-2 COVID-19, mRNA, LNP-S, preservative free 06/13/2021 Pneumococcal conjugate 13 va lent (Prevnar 13, PCV13) 2mo and older 02/25/2015 Pneumococcal polysaccharide 23 valent (Pneumovax 23) 2yo and older 03/09/2011,06/08/2003 Respiratory syncytial virus (RSV), unspecified 09/17/2023 Td Tetanus diptheria (Tdvax) 7yo and older 02/24/2018 Tdap Tetanus diptheria acell ular pertussis (Boostrix; Adacel) 7yo and older 04/01/2007 Zoster Live 02/25/2009 Zoster recombinant (Shingrix ) 19yo and older 01/30/2023,08/01/2022 Surgical History Surgery Date Site/Laterality Comments TUBAL LIGATION PROCEDURE: HISTORICAL TUBAL LIGATION APPENDECTOMY PROCEDURE: HISTORICAL APPENDECTOMY COLONOSCOPY PROCEDURE: HISTORICAL COLONOSCOPY; COMMENT: 2005 dr chang normal BREAST BIOPSY PROCEDURE: BX BREAST; PERC NEEDLE CORE W/IMAG GUID; COMMENT: 2 bxs neg ? which brst COLONOSCOPY Jul 2015 PROCEDURE: HISTORICAL COLONOSCOPY; COMMENT: internal hemorrhoids Medical History Medical History Date Comments Dysuria 10/29/2005 DX:Dysuria Screening for glaucoma 10/29/2005 DX:Screen ing for glaucoma Disorder of bone and cartila ge, unspecified 10/29/2005 DX:Disorder of bone and cart ilage, unspecified Depressive disorder, not els ewhere classified 10/29/2005 DX:Depressive disorder, not elsewhere classified Fetus or affected by ectopic of mother 10/29/2005 DX:Fetus or affected by ectopic of mother Cough 10/29/2005 DX:Cough Headache(784.0) 10/29/2005 DX:Headache(784. 0) Pneumonia 09/19 DX:Pneumonia Osteopenia 08/26/2014 DX:Osteopenia; C OMMENT: Previously on fosamax For over 10 yrs Hyperlipidemia 07/02/2008 DX:Hyperlipidemi a Lung nodule 08/31/2014 DX:Lung nodule Bronchiectasis (CMS/HCC V24, CMS/HCC V28) 02/26/2008 DX:Bronchiectasis (HCC) Family History Medical History Relation Name Comments Lung cancer Mother 50's Stomach cancer Paternal Grandmother Breast cancer Neg Hx Relation Name Status Comments Father (Age 65) [place] at age 49, stroke Mother (Age 63) emphysema, lung cancer Paternal Grandmother Sister Alive rheumatoid arth ritis, thyroid d/o Social History Tobacco Use Types Packs/Day Years Used Date Smoking Tobacco: Former Cigarettes Q uit: 08/12/1982 Smokeless Tobacco: Former Tobacco Cessation:Counseling Given: Not Answered Alcohol Use Standard Drinks/Week Comments Yes 0 (1 standard drink = 0.6 oz pur e alcohol) Comments Unknown Sex and Gender Information Value Date Recorded Sex Assigned at Not on file Legal Sex Female 4:28 AM EST Gender Identity Not on file Sexual Orientation Not on file Obstetrics History Last Filed Vital Signs Vital Sign Reading Time Taken Comments Blood Pressure 130/76 09/25/2024 8:43 AM EST Pulse 87 09/25/2024 8:43 AM EST Temperature 35.9 ??C (96.7 ??F) 09/25/2024 8:43 AM ES T Respiratory Rate 12 09/25/2024 8:43 AM EST Oxygen Saturation - - Inhaled Oxygen Concentration - - Weight 43.5 kg (95 lb 12.8 oz) 09/25/2024 8:43 A M EST Height 157.5 cm (5' 2 ) 09/25/2024 8:43 AM EST Body Mass Index 17.52 09/25/2024 8:43 AM EST Plan of Treatment Upcoming Encounters Date Type Department Care Team (Late st Contact Info) Description 03/31/2025 8:15 AM EDT Office Visit Adult Medicine [facility] [address] [place] [phone] Andre Katz PA [address] [place] [address] 05/03/2025 8:30 AM EDT Appointment Radiology Department - [address] [phone] Health Maintenance Due Date Last Done Comments RSV Immunization Adult Patients (1 - 1-dose 75+ series) 2021 09/17/2023 Medicare Annual Wellness Visit 07/21/2022 Social Influencers of Health Screening 07/21/2022 COVID-19 Vaccine ( season) 2024 05/19/2022, 11/25/2021, 06/13/2021, Additional history exists Osteoporosis Screening (Bone Density Screening) 06/30/2024 06/30/2019 Depression Screening 09/16/2024 09/16/2023 Falls Risk Assessment 10/15/2024 10/16/2023 DTaP,Tdap,and Td Vaccines (3 - Td or Tdap) 02/25/2028 02/24/2018, 04/01/2007 Cholesterol Screening (Lipid Panel) 09/25/2029 09/25/2024, 09/16/2023 Hepatitis C Screening Completed 02/20/2013 Pneumococcal Vaccine: 50+ Years Completed 02/25/2015, 03/09/2011, 06/08/2003 Zoster Vaccines Completed 01/30/2023, 07/13, 02/25/2009 RSV Immunization Patients Under 20 months Aged Out 09/17/2023 No longer eligible based on patient's age to complete this topic Influenza Vaccine Completed 09/25/2024, , 06/12/2021, Additional history exists HIB Vaccines Aged Out No longer eligi ble based on patient's age to complete this topic HPV Vaccines Aged Out No longer eligi ble based on patient's age to complete this topic Hepatitis A Vaccines Aged Out No long er eligible based on patient's age to complete this topic Hepatitis B Vaccines Aged Out No long er eligible based on patient's age to complete this topic IPV Vaccines Aged Out No longer eligi ble based on patient's age to complete this topic MMR Vaccines Aged Out No longer eligi ble based on patient's age to complete this topic Meningococcal ACWY Vaccine Aged Out N o longer eligible based on patient's age to complete this topic Meningococcal B Vaccine Aged Out No l onger eligible based on patient's age to complete this topic Varicella Vaccines Aged Out No longer eligible based on patient's age to complete this topic Procedures Procedure Name Priority Date/Time Associated Diagnosis Comments DRUG ABUSE SCREEN EXPANDED WITH REFLEX CONFIRMATION, URINE Routine 09/25/2024 9:48 AM EST Osteoporosis, unspecified osteoporosis type, unspecified pathological fracture presence Anxiety Asbestos exposure Bronchiectasis with acute lower respiratory infection ([facility]/HCC V24, CMS/HCC V28) Other hyperlipidemia Depression, unspecified depression type Bronchiectasis without complication (CMS/HCC V24, CMS/HCC V28) Need for prophylactic vaccination and inoculation against influenza Encounter for therapeutic drug level monitoring LIPID PANEL WITH REFLEX TO DIRECT LDL Routine 09/25/2024 9:48 AM EST Osteoporosis, unspecified osteoporosis type, unspecified pathological fracture presence Anxiety Asbestos exposure Bronchiectasis with acute lower respiratory infection (CMS/HCC V24, CMS/HCC V28) Other hyperlipidemia Depression, unspecified depression type Bronchiectasis without complication (CMS/HCC V24, CMS/HCC V28) Need for prophylactic vaccination and inoculation against influenza COMPREHENSIVE METABOLIC PANEL Routine 09/25/2024 9:48 AM EST Osteoporosis, unspecified osteoporosis type, unspecified pathological fracture presence Anxiety Asbestos exposure Bronchiectasis with acute lower respiratory infection (CMS/HCC V24, CMS/HCC V28) Other hyperlipidemia Depression, unspecified depression type Bronchiectasis without complication (CMS/HCC V24, CMS/HCC V28) Need for prophylactic vaccination and inoculation against influenza FALLS RISK ASSESSMENT Routine 10/16/2023 DEPRESSION SCREENING Routine 09/16/2023 DXA BONE DENSITY STUDY 1+ SITS AXIAL SKEL Routine 06/30/2019 9:48 AM EST Other osteoporosis without current pathological fracture HEPATITIS C SCREENING Routine 02/20/2013 from Last 3 Months or Most Recently Relevant to Health Maintenance Results * Drug abuse screen expanded with reflex confirmation, urine (09/25/2024 9:48 AM EST) [facility] Amphetamine Screen, Ur Negative Negative LAB CHEMISTRY METHOD 09/25/2024 1:12 PM [facility] Comment:Certain OTC medicati ons containing ephedrine, phenylephrine, pseudoephedrine and phenylpropanolamine can cause false positive results. Barbiturate Screen, Ur Negative Negative LAB CHEMISTRY METHOD 09/25/2024 1:12 PM [facility] Benzodiazepine Screen, Ur Negative Negative LAB CHEMISTRY METHOD 09/25/2024 1:12 PM [facility] Cocaine Screen, Ur Negative Negative LAB CHEMISTRY METHOD 09/25/2024 1:12 PM [facility] Opiate Screen, Ur Negative Negative LAB CHEMISTRY METHOD 09/25/2024 1:12 PM [facility] Cannabinoid (THC) Screen, Ur Negative Negative LAB CHEMISTRY METHOD 09/25/2024 1:12 PM [facility] Comment:Specimens from patie nts taking pantoprazole sodium (Protonix) have been shown to produce false positive results. Fentanyl, Ur Negative Negative LAB CHEMISTRY METHOD 09/25/2024 1:12 PM [facility] Oxycodone Screen, Ur Negative Negative LAB CHEMISTRY METHOD 09/25/2024 1:12 PM [facility] Urine Urine specimen obtained by clean catch procedure / Unknown Non-blood Collection / Unknown 09/25/2024 9:48 AM EST 09/25/2024 9:48 AM EST [facility] - 09/25/2024 1:12 PM EST Assay cutoffs: Amphetamines ? 1000 ng/mL Barbiturates ?200 ng/mL Benzodiazepines ?? 200 ng/mL Cocaine ? 300 ng/mL Fentanyl ?1 ng/mL Opiates ? 300 ng/mL Oxycodone ? 100 ng/mL THC ?50 ng/mL Semi-quantitative assay for screening purposes only. Unconfirmed screening result should not be used for non-medical purposes. *POSITIVE RESULTS ARE AUTOMATICALLY SENT FOR ALTERNATE METHOD CONFIRMATION* Andre GONZALEZ LAB URINE ORDERABLES Candace l Result Performing Organization Address [facility]/ZIP Co de Phone Number [facility] [address] [place] [address], [place] [phone] * Lipid panel with reflex to direct LDL (09/25/2024 9:48 AM EST) [facility] Cholesterol 186 0 - 200 mg/dL LAB CHEMISTRY METHOD 09/25/2024 1:05 PM [facility] Triglycerides 45 0 - 150 mg/dL LAB CHEMISTRY METHOD 09/25/2024 1:05 PM [facility] HDL 93 >=40 mg/dL LAB CHEMISTRY METHOD 09/25/2024 1:05 PM EST [facility] LDL Calculated 84 0 - 100 mg/dL LAB CHEMISTRY METHOD 09/25/2024 1:05 PM [facility] VLDL Cholesterol Flip 9 mg/dL LAB CHEMISTRY METHOD 09/25/2024 1:05 PM [facility] Non HDL Chol. (LDL+VLDL) 93 <145 mg/dL LAB CHEMISTRY METHOD 09/25/2024 1:05 PM [facility] Chol/HDL Ratio 2.0 0.0 - 4.4 LAB CHEMISTRY METHOD 09/25/2024 1:05 PM [facility] Blood Venous blood specimen / Unknown Venipuncture / Unknown 09/25/2024 9:48 AM EST 09/25/2024 9:48 AM EST Andre GONZALEZ LAB BLOOD ORDERABLES Candace l Result Performing Organization Address [facility]/ZIP Co de Phone Number [facility] [address] [place] [address], [place] [phone] * Comprehensive metabolic panel (09/25/2024 9:48 AM EST) Sodium 137 133 - 145 mmol/L LAB CHEMISTRY METHOD 09/25/2024 12:52 PM [facility] Potassium 4.3 3.5 - 5.5 mmol/L LAB CHEMISTRY METHOD 09/25/2024 12:52 PM [facility] Chloride 102 96 - 110 mmol/L LAB CHEMISTRY METHOD 09/25/2024 12:52 PM [facility] CO2 32 21 - 32 mmol/L LAB CHEMISTRY METHOD 09/25/2024 12:52 PM [facility] Anion Gap 3 3 - 11 LAB CHEMISTRY METHOD 09/25/2024 12:52 PM [facility] Glucose 85 70 - 100 mg/dL LAB CHEMISTRY METHOD 09/25/2024 12:52 PM [facility] BUN 14 5 - 25 mg/dL LAB CHEMISTRY METHOD 09/25/2024 12:52 PM [facility] Creatinine 0.58 0.50 - 1.10 mg/dL LAB CHEMISTRY METHOD 09/25/2024 12:52 PM [facility] eGFR 93 >=60 mL/min/1. 73m2 LAB CHEMISTRY METHOD 09/25/2024 12:52 PM [facility] Comment:Calculation based on the??Chronic Kidney Disease Epidemiology Collaboration (CKD-EPI) equation refit??without adjustment for race. BUN/Creatinine Ratio 24.1 LAB CHEMISTRY METHOD 09/25/2024 12:52 PM [facility] Calcium 9.6 8.5 - 10.5 mg/dL LAB CHEMISTRY METHOD 09/25/2024 12:52 PM [facility] AST (SGOT) 16 10 - 42 unit/L LAB CHEMISTRY METHOD 09/25/2024 12:52 PM [facility] ALT (SGPT) 25 10 - 60 unit/L LAB CHEMISTRY METHOD 09/25/2024 12:52 PM EST [facility] Alkaline Phosphatase 78 42 - 121 unit/L LAB CHEMISTRY METHOD 09/25/2024 12:52 PM EST [facility] Total Protein 7.0 6.0 - 8.0 g/dL LAB CHEMISTRY METHOD 09/25/2024 12:52 PM EST [facility] Albumin 3.5 3.2 - 5.0 g/dL LAB CHEMISTRY METHOD 09/25/2024 12:52 PM EST [facility] Total Bilirubin 0.6 0.0 - 1.4 mg/dL LAB CHEMISTRY METHOD 09/25/2024 12:52 PM EST [facility] Blood Venous blood specimen / Unknown Venipuncture / Unknown 09/25/2024 9:48 AM EST 09/25/2024 9:48 AM EST Andre GONZALEZ LAB BLOOD ORDERABLES Candace l Result [facility] [address] [place] [address], * Falls Risk Assessment (10/16/2023) Falls Risk Assessment abstracted Historical Provider HEALTH MAINTENANCE Final Result * Depression Screening (09/16/2023) Depression Screening abstracted Historical Provider HEALTH MAINTENANCE Final Result * DXA BONE DENSITY STUDY 1+ SITS AXIAL SKEL (06/30/2019 9:48 AM EST) Anatomical Region Laterality Modality Bone Densitometr y 05/11/2019 12:3 2 PM EDT Narrative 06/30/2019 4:04 PM EST BONE DENSITY ? Lumbar Spine T-score is -1.4 ?? (SD relative to 20-29 y/o adult) Z-score is +0.9 ??(SD relative to age matched peers) This is consistent with osteopenia by criteria defined by the WHO. Left Hip T-score is -2.9 Z-score is -0.9 This is consistent with osteoporosis by criteria defined by the WHO. Comparison exam(s): no statistically significant change in the bone density of the hip when compared to most recent bone density examination ?? Confidence level is +/-95%. Impression: Based on the World Health Organization criteria, Macy Chambers should be classified as having osteoporosis. The [facility] Department of Internal Medicine recommends using National Osteoporosis Foundation (NOF) guidelines in treatment decisions related to osteoporosis. NOF guidelines suggest considering treatment for postmenopausal women and men aged 50 or older presenting with the following: History of hip or vertebral fracture. T-score less than or equal to -2.5 (DXA) at the femoral neck, total hip, or spine, after appropriate evaluation to exclude secondary causes. Low bone mass (T-score between -1.0 and -2.5 at the femoral neck or spine) AND a 10-year probability of a hip fracture greater than or equal to 3% OR a 10-year probability of a major osteoporosis-related fracture greater than or equal to 20% based on the [place]-adapted WHO algorithm Please note that all treatment decisions require clinical judgment and consideration of individual patient factors, including patient preferences, co-morbidities, previous drug use, risk factors not captured in the FRAX model (e.g., frailty, falls, vitamin D deficiency, increased bone turnover, interval significant decline in bone density) and possible under- or over-estimation of fracture risk by FRAX. Procedure Note Jovanny Child - 07/31/2022 BONE DENSITY Lumbar Spine T-score is -1.4 (SD relative to 20-29 y/o adult) Z-score is +0.9 (SD relative to age matched peers) This is consistent with osteopenia by criteria defined by the WHO. Left Hip T-score is -2.9 Z-score is -0.9 This is consistent with osteoporosis by criteria defined by the WHO. Comparison exam(s): no statistically significant change in the bonedensity of the hip when compared to most recent bone density examination Confidence level is +/-95%. Impression: Based on the World Health Organization criteria, Macy Walshould be classified as having osteoporosis. The [facility] Department of Internal Medicine recommendsusing National Osteoporosis Foundation (NOF) guidelines in treatmentdecisions related to osteoporosis. NOF guidelines suggest consideringtreatment for postmenopausal women and men aged 50 or older presentingwith the following: History of hip or vertebral fracture. T-score less than or equal to -2.5 (DXA) at the femoral neck, total hip,or spine, after appropriate evaluation to exclude secondary causes. Low bone mass (T-score between -1.0 and -2.5 at the femoral neck or spine)AND a 10-year probability of a hip fracture greater than or equal to 3% ORa 10-year probability of a major osteoporosis-related fracture greaterthan or equal to 20% based on the [place]-adapted WHO algorithm Please note that all treatment decisions require clinical judgment andconsideration of individual patient factors, including patientpreferences, co-morbidities, previous drug use, risk factors not capturedin the FRAX model (e.g., frailty, falls, vitamin D deficiency, increasedbone turnover, interval significant decline in bone density) and possibleunder- or over-estimation of fracture risk by FRAX. Robert Miller MD IM DXA PROCEDURES Final Result * Hepatitis C Screening (02/20/2013) [facility] Hepatitis C Screening abstracted Historical Provider HEALTH MAINTENANCE Final Result from Last 3 Months or Most Recently Relevant to Health Maintenance Insurance MEDICARE [facility] Care Teams Line Tender Relationship Specialty Start Date End Date Andre Katz PA [address] [place] [address] PCP - General Internal Medicine 08/18/20
== END 2024-12-21 09:45 | disposition home or self-care (01) ==
LOC: HO.HPS 09:27
PROVIDERS: PCP Physician Assistant Medical; Visit Provider Internal Medicine
DX: J44.9 Chronic obstructive pulmonary disease, unspecified (principal); J47.9 Bronchiectasis, uncomplicated
CPT/HCPCS: 99213

== ENCOUNTER → 2024-12-21 09:27 | Outpatient (BNVA) | payer MEDICARE, SELFPAY | PROVIDERS: PCP Physician Assistant Medical; Visit Provider Internal Medicine | DX: J42 Unspecified chronic bronchitis (principal); J47.9 Bronchiectasis, uncomplicated | CPT/HCPCS: 99212 ==

== ENCOUNTER 2025-04-21 08:55 | Outpatient (AMB) | payer MEDICARE, SELFPAY ==
--- NOTE | 2025-04-21 08:56 | A.OFFVIS_ITS ---
Vital Signs 04/21/25 08:57 Height 5 ft 3 in Intake Visit Reasons: 6m f/u Allergies No Known Allergies Allergy (Verified 04/21/25 08:59) Medication List - Last Reconciled 04/21/25 by Emma Javier CNP albuterol sulfate 90 mcg/actuation 2 puffs PO Q6H PRN amitriptyline 25 mg PO BEDTIME atorvastatin 10 mg PO DAILY brimonidine 0.15% 1 drp ophthalmic (eye) ONCE donepezil 10 mg PO DAILY dorzolamide-timolol 22.3-6.8 mg/mL 1 drp ophthalmic (eye) BID eawlfvcujgm-ugmfgsnpq-drmiovrz 100-62.5-25 mcg (Trelegy Ellipta) 1 inh inhalation DAILY vtejlkpgwhv-omcjsdjsp-lnulxyvf 100-62.5-25 mcg (Trelegy Ellipta) 1 inh inhalation DAILY 30 days guaifenesin ER (Mucinex) 1,200 mg PO ONCE PRN guaifenesin ER (Mucinex) 1,200 mg PO BID 15 days lorazepam 1 mg PO DAILY PRN multivitamin 1 tab PO DAILY netarsudil-latanoprost 0.02-0.005 % drps ophthalmic (eye) sertraline 50 mg PO DAILY trazodone 50 mg PO BEDTIME PRN HPI Comments Details: 80-year-old woman with glaucoma, depression, anxiety, and MCI. She lives with a roommate since being for over 15 years. She has no children. She was doing okay. Memory was so-so. She was still managing her finances and driving without issue. Mood was okay, although she was a bit nervous today that she may have offended a long-time friend. Sleep was okay. COUNT INCLUDES THE [facility] Medical History (Updated 04/21/25 @ 08:58 by Emma Javier CNP) Anxiety and depression HLD (hyperlipidemia) MCI (mild cognitive impairment) Acute rhinosinusitis COPD exacerbation Chronic bronchitis Bronchiectasis COPD (chronic obstructive pulmonary disease) Allergic rhinitis Social History Patient Tobacco Use Status: Former Tobacco user Years Smoked: 20 Review of Systems Const Denies chills, Denies daytime sleepiness, Reports difficulty sleeping, Denies fatigue, Denies fever(s), Denies frequent falls, Denies headache(s), Denies increased appetite, Denies poor appetite, Denies snoring, Denies weakness, Denies weight gain and Denies weight loss Eyes Denies loss of vision ENT Denies vertigo, Denies dizziness, Denies headache(s) and Denies neck pain Card Denies chest pain at rest, Denies chest pain with activity, Denies syncope, Denies leg edema, Denies palpitations, Denies dyspnea and Denies dyspnea on exertion Resp Denies cough, Denies dyspnea, Denies dyspnea on exertion and Denies snoring GI Denies abdominal pain, Denies constipation, Denies heartburn, Denies diarrhea and Denies nausea Denies urinary frequency, Denies urinary incontinence and Denies urinary urgency Musc Denies abnormal gait, Denies back pain, Denies myalgias, Denies arthralgias, Denies neck pain, Denies numbness and Denies tingling Neuro Denies abnormal gait, Denies vertigo, Denies dizziness, Denies syncope, Denies frequent falls, Denies headache(s), Denies lack of coordination, Denies loss of vision, Denies memory loss, Denies numbness, Denies Other visual disturbances, Denies restless legs, Denies seizure-like activity, Denies tingling, Denies paresthesias, Denies tremor(s) and Denies weakness Psych Reports anxiety, Reports depression, Denies auditory hallucinations, Denies memory loss and Denies visual hallucinations Endo Denies fatigue and Denies palpitations Physical Exam Const Other: General Appearance:? normal, in no acute distress. Heart:? S1, S2 normal, no murmurs. Lungs:? clear anteriorly and posteriorly. Musculoskeletal:? normal. Extremities:? no edema. Psych:? alert, as below. Neuro Other: Abnormal Neurological Findings:?MMSE 26/30. Mental Status: alert, as below. Cranial Nerves: Pupils are equal, round, and reactive to light. External ocular muscles are intact. Visual hughes are full, no ptosis. Face is symmetrical, no facial weakness or droop. Facial sensations are normal. Tongue protrudes in midline. Palate elevates symmetrically. Shoulder shrugging is normal Motor Examination: Normal muscle tone, bulk and strength. No atrophy or fasciculations. No drift of the extended upper extremities. DTR 2+. Plantars are flexor. Sensory Exam: Normal light touch, temperature, pinprick, vibration, and joint- position sensations. Rhomberg sign is absent. Coordination: No ataxia. No titubation. Gait Exam: Within normal limits. Cerebellar Signs: Bgsgde-vg-jxaw is okay. Extrapyramidal System: No tremor, rigidity with normal facial expressions. No bradykinesia. No bradyphrenia. Normal arm swing and posture. No propulsion or retropulsion. Speech: Normal. MMSE Level of Consciousness: Alert. Orientation: Knows correct year, month, date, day and season. Knows correct city, county and state. Knows correct location and floor. Registration: Able to register 3 objects. Attention: Serial 7's performed accurately to 93 Recall: Able to recall 3 out of 3 objects. Language: Normal spontaneous speech, fluency, repetition, naming, comprehension, reading, and writing. Total Score: 26/30. Results Reviewed Results Reviewed: 12/06/22 EEG- WNL 12/07/22 CT brain: Mild white matter chronic small vessel ischemic changes. Mild diffuse parenchymal volume loss the brain. Labs normal. Assessment & Plan Assessment & Plan (1) MCI (mild cognitive impairment): Code(s): G31.84 - Mild cognitive impairment of uncertain or unknown etiology Category: Medical Plan: Start memantine 5mg 1 tablet twice a day, use/side effects reviewed. Continue donepezil 10mg 1 tablet at bedtime. Continue sertraline 50mg 1 tablet daily. Stay physically and socially active. Medications: New sertraline 50 mg PO DAILY 90 tabs 1RF 90 days memantine (Namenda) 5 mg PO BID 180 tabs 0RF 90 days donepezil 10 mg PO DAILY 90 tabs 1RF 90 days Coding Level of Care Code Est Pt Level 4 (80482) Diagnoses MCI (mild cognitive impairment) G31.84
--- OUTSIDE RECORDS SUMMARY | 2025-04-21 10:29 | XMS_ITS | Encounter Summary ---
Author Organization [facility] [place] [place] [address] Care Team Providers Care Deli Associate Name Role Phone Andre Katz Primary Care Provider [phone] Reason for Visit * Reason Onset Date Comments Weight Gain 04/06/2025 Encounter Details Date Type Department Care Team ([facility] st Contact Info) Description 04/06/2025 Telephone Adult Medicine [address] [phone] Andre Katz PA [address] [place] [phone] Social History Tobacco Use Types Packs/Day Years Used Date Smoking Tobacco: Former Cigarettes Q uit: 08/12/1982 Smokeless Tobacco: Former Alcohol Use Standard Drinks/Week Comments Yes 0 (1 standard drink = 0.6 oz pur e alcohol) Housing Instability Answer Date Recorde d Are you worried that in the next 2 months you may not have stable housing? No 03/31/2025 Food Access & Nutrition Answer Date Rec orded Do you have access to a vari ety of food including fruits and vegetables? Yes 03/31/2025 Health Literacy Answer Date Recorded How often do you need to hav e someone help you when you read instructions, pamphlets, or other written material from your doctor or pharmacy? Never 03/31/2025 Caregiver: How often do you need to have someone help you when you read instructions, pamphlets, or other written material from your doctor or pharmacy? Not on file 03/31/2025 Financial Risk Answer Date Recorded How hard is it for you to pa y for the very basics like food, housing, medical care, and air conditioning / heating? Not very hard 03/31/2025 Transportation Answer Date Recorded Has the lack of transportati on kept you from meetings, work, or from getting things needed for daily living? No Has the lack of transportati on kept you from medical appointments or from getting medications? No 03/31/2025 Social Isolation Answer Date Recorded How often do you feel lonely or isolated from th ose around you? Never 03/31/2025 Food Risk Answer Date Recorded Within the past 12 months we worried whether our food would run out before we got money to buy more. Never true 03/31/2025 Within the past 12 months th e food we bought just didn't last and we didn't have money to get more. Never true 03/31/2025 Dependent Care Answer Date Recorded Do you need help finding or paying for care for your loved ones. For example, professor of early childhood education or elderly care for an older adult? No 03/31/2025 Education Answer Date Recorded Do you think completing more education or training, like finishing a GED, going to college, or learning a trade, would be helpful for you? No 03/31/2025 Employment and Income Answer Date Recor ded During the last four weeks, have you been actively looking for work? No 03/31/2025 Living Situation Answer Date Recorded What is your living situation? 0 03/31/2025 Comments No Sex and Gender Information Value Date Recorded Sex Assigned at Not on file Legal Sex Female 4:28 AM EST Gender Identity Not on file Sexual Orientation Not on file documented as of this encounter Ordered Prescriptions Prescription Sig Dispense Quantity Refills Last Filled Start Date End Date doxepin (SINEquan) 10 mg capsule Take 1 capsule (10 mg total) by mouth at bedtime. 30 each 04/15/2025 sertraline (ZOLOFT) 50 mg tablet Take 1 tablet (50 mg total) by mouth 1 (one) time each day. 90 tablet 1 04/06/2025 documented in this encounter Progress Notes * Melanie Dudley RN - 04/16/2025 8:27 AM EDT Spoke with the pt advised script sent to [facility] To call the office if not helping with symptoms. * LISA Elmore - 04/15/2025 8:58 PM EDT I'll send an rx for the doxepin * Jessica Perdomo RN - 04/15/2025 11:35 AM EDT Pt is aware Andre Katz is out of the office today and is willing to wait until tomorrow for a response. * Sonia Ocampo - 04/15/2025 11:16 AM EDT Patient calling back. States she is willing to try Doxepin if that is something that doesn't cause weight gain. If this doesn't cause weight gain she would like a script to go to her local pharmacy [facility] [address] [place] Patient would like a call back as to what is being done with this request. [phone] ([place]) COVERING [facility]BO LOPES IS OUT TODAY * Sriram Musa - 04/14/2025 2:35 PM EDT Patient is calling back into regards to her medication causing her weight gain and what are her options. She states she does not want anything that will make her gain weight. Please Call Patient withan Update. * Rashmi Jalloh MA - 04/09/2025 3:24 PM EDT Called pt lvm to return my phone call. * LISA Elmore - 04/06/2025 3:18 PM EDT Well it would be reasonable to restart the sertraline like we talked about. Could also use another sleep aid such as doxepin * Iván Garcia RN - 04/06/2025 12:41 PM EDT Called and spoke with pt advised of message from pcp. Pt is asking if there is a different medication pcp would recommend instead? * LISA Elmore - 04/06/2025 11:48 AM EDT Well she is right sometimes it will cause weight gain might be best to stop the medication if she is worried about the B[place]o * Melanie Dudley RN - 04/06/2025 10:16 AM EDT Any advise about the wt gain on Remeron * LISA Elmore - 04/06/2025 9:59 AM EDT Okay will send Rx * Melanie Dudley RN - 04/06/2025 9:37 AM EDT Spoke with the pt Gained 2 pounds No swelling noted. There is no increased appetite. Has cut back on cookies, crackers or ice cream. No SOB or difficulty breathing. Speaking in complete sentences. She would like to catch the wt gain early and not wait until there is more of an increase Please advise Asking to refill her sertraline * Cori Andrade - 04/06/2025 8:43 AM EDT Patient call requires triage: Symptoms patient is presenting: c/o weight gain she feels it may be a side effect of mirtazapine (REMERON) 7.5 mg tablet How long has patient had these symptoms?: 03/31/25 For ALL patients calling to schedule any appointment (routine, sick visit, follow up, consult, etc.) in the outpatient setting please ask the following questions: Do you have fever of higher than 101, sore throat with difficulty swallowing or severe shortness ofbreath? no If YES to any of these above symptoms, send a message to triage and do not book. Red dot. If no, an audio or video visit should be booked. Have you had close contact with someone with Coronavirus in the last 14 days? no Have you traveled abroad? no Have you traveled recently to another state outside of [place], [place], [place], [place], [place], [place], [place]? no o If yes, did you quarantine for 14 days or have a negative covid test? no If yes to any of the above, patient is not to be scheduled in office until after 14 day quarantine or negative covid test. If pain or injury related was it due to an accident at work or from a motor vehicle accident? If yes, date of accident/Injury: No If yes, gather 3rd [employer] party insurance information [employer] Information: not applicable PCP: LISA English Payor: MEDICARE / Plan: MEDICARE PART A & B / Product Type: Medicare / documented in this encounter Plan of Treatment Upcoming Encounters Date Type Department Care Team (Late st Contact Info) Description 05/03/2025 8:40 AM EDT Appointment Radiology Department - [address] [phone] 07/28/2025 10:00 AM EST Appointment Bone Density - [address] [phone] 10/06/2025 8:00 AM EST Office Visit Adult [facility] - [address] [phone] Andre Katz PA [address] [place] [phone] documented as of this encounter Visit Diagnoses Not on filedocumented in this encounter Discontinued Medications Medication Sig Discontinue Reason Start Date End Da te sertraline (ZOLOFT) 50 mg tablet Take 1 tablet (50 mg total) by mouth 1 (one) time each day. Reorder 03/31/2025 04/06/2025 documented as of this encounter Additional Health Concerns Assessment Noted Time PHQ-9 Depression Total Score: 5 03/31/20 25 8:28 AM EDT A fall risk assessment has been complete d for the patient 03/31/2025 8:28 AM EDT documented as of this encounter Care Teams Deli Associate Relationship Specialty Start Date End Date Andre Katz PA [address] [place] [phone] PCP - General Internal Medicine 08/18/20 documented as of this encounter
--- OUTSIDE RECORDS SUMMARY | 2025-04-21 10:29 | XMS_ITS | Clinical Summary ---
Author Organization [address] Address [address] [place] [phone] Phone Care Team Providers Care Electric Stop Installer Name Role Phone Andre Katz Primary Care Provider [phone] Allergies No known active allergies Medications albuterol sulfate (ProAir RespiClick) 90 mcg/actuation aerosol powdr breath activated Inhale by mouth. Active albuterol 2.5 mg /3 mL (0.083 %) nebulizer solution Inhale 3 mL (2.5 mg total) by mouth every 4 (four) hours if needed for wheezing or shortness of breath. 10/28/19 16 Active acetaminophen (TYLENOL) 500 mg tablet Take 1 tablet (500 mg total) by mouth. 05/18/20 22 Active bimatoprost (LUMIGAN) 0.01 % ophthalmic drops Administer 1 drop into affected eye(s). Active brimonidine (ALPHAGAN P) 0.15 % ophthalmic solution Administer 1 drop into affected eye(s). 08/06/20 16 Active brimonidine (ALPHAGAN) 0.2 % ophthalmic solution Administer 1 drop into both eyes 2 (two) times a day. 05/25/20 24 Active dorzolamide-ti moloL (COSOPT) 22.3-6.8 mg/mL ophthalmic solution INSTILL 1 DROP INTO BOTH AFFECTED EYES TWICE DAILY Active estradioL (ESTRACE) 0.01 % (0.1 mg/gram) vaginal cream Please use 0.5g, pea-sized amount on your finger and place inside the vagina for 2 weeks at night, and then decrease to twice a week at night (Mondays and ) 12/05/19 23 Active Vyzulta 0.024 % drops INSTILL 1 DROP INTO BOTH EYES DAILY Active magnesium oxide (MAG-OX) 400 mg magnesium tablet Take 1 tablet (400 mg total) by mouth 1 (one) time each day. 05/18/20 24 Active naproxen (NAPROSYN) 375 mg tablet Take 1 tablet (375 mg total) by mouth 2 (two) times a day with meals. 10/04/19 19 Active Rhopressa 0.02 % drops Administer 1 drop into both eyes. at bedtime Active calcium carbonate (CALTRATE 600 ORAL) 1 TABLET DAILY Active multivitamin (MULTIPLE VITAMINS ORAL) 1 po qd 10/06/19 08 Active IBUPROFEN ORAL Take 1 Tablet by mouth every 6 hours as needed for Pain for up to 30 days. 05/18/20 22 Active UNABLE TO FIND by Does not apply route. Active atorvastatin (LIPITOR) 10 mg tablet Take 1 tablet (10 mg total) by mouth 1 (one) time each day. 60 tablet 07/22/20 24 Active Trelegy Ellipta 100-62.5-25 mcg inhaler Inhale 1 puff by mouth once daily 60 each 11/13/19 25 Active Gemtesa 75 mg tablet tablet Take 1 tablet (75 mg total) by mouth 1 (one) time each day. 90 tablet 02/17/20 25 Active amitriptyline (ELAVIL) 25 mg tablet Take 1 tablet (25 mg total) by mouth at bedtime. 90 tablet 3 03/31/20 25 Active LORazepam (ATIVAN) 1 mg tablet TAKE 1 TABLET BY MOUTH ONCE DAILY NEEDED FOR ANXIETY. MAX DAILY AMOUNT: 1 TABLET. 28 tablet 03/31/20 25 Active mirtazapine (REMERON) 7.5 mg tablet Take 1 tablet (7.5 mg total) by mouth at bedtime. 30 each 5 03/31/20 25 Active sertraline (ZOLOFT) 50 mg tablet Take 1 tablet (50 mg total) by mouth 1 (one) time each day. 90 tablet 1 04/06/20 25 Active doxepin (SINEquan) 10 mg capsule Take 1 capsule (10 mg total) by mouth at bedtime. 30 each 11 04/15/20 25 026 Active traZODone (DESYREL) 50 mg tablet Take 1 tablet (50 mg total) by mouth at bedtime. 90 tablet 3 09/25/19 25 025 Discontinued amitriptyline (ELAVIL) 25 mg tablet Take 1 tablet (25 mg total) by mouth at bedtime. 90 tablet 3 09/25/19 25 025 Discontinued(Re order) sertraline (ZOLOFT) 50 mg tablet Take 1 tablet (50 mg total) by mouth 1 (one) time each day. 90 tablet 1 10/13/19 25 025 Discontinued(Re order) LORazepam (ATIVAN) 1 mg tablet TAKE 1 TABLET BY MOUTH ONCE DAILY NEEDED FOR ANXIETY. MAX DAILY AMOUNT: 1 TABLET. 28 tablet 03/03/20 25 025 Discontinued(Re order) sertraline (ZOLOFT) 50 mg tablet Take 1 tablet (50 mg total) by mouth 1 (one) time each day. 90 tablet 1 03/31/20 25 025 Discontinued(Re order) Active Problems Problem Noted Date Diagnosed Date Chronic bronchitis ([facility] V24, [facility] V28) Abnormal CT scan, chest 05/20/2017 Asbestos exposure 05/20/2017 Bronchiectasis with acute lo wer respiratory infection ([facility] V24, [facility] V28) 05/20/2017 Ground glass opacity present on imaging of lung 05/20/2017 Insomnia 10/19/2016 Chronic cough 05/01/2016 Anxiety 01/20/2016 Osteoporosis 06/24/2015 Overview (09/25/2024): tx with fosamax x 10 years discontinued 2012 restarted 2019 Lung nodule 08/31/2014 Hyperlipidemia 07/02/2008 Bronchiectasis ([facility] V24, [facility] V28) 2007 Depression 10/29/2005 Dysuria 10/29/2005 Headache 10/29/2005 Encounters Date Type Department Care Team Description 04/06/2025 Telephone Adult Medicine [address] [phone] Andre Katz PA 03/31/2025 8:15 AM EDT Office Visit Adult Medicine [address] [phone] Star[place]oli, Andre D, PA Bronchiectasis without complication ([facility] V24, [facility] V28) (Primary Dx); Screening for osteoporosis; Abnormal CT scan, chest; Anxiety; Asbestos exposure; Bronchiectasis with acute lower respiratory infection ([facility] V24, [facility] V28); Chronic bronchitis, unspecified chronic bronchitis type ([facility] V24, [facility] V28); Ground glass opacity present on imaging of lung; Other hyperlipidemia; Osteoporosis, unspecified osteoporosis type, unspecified pathological fracture presence; Localized osteoporosis ([place]); Purpura ([facility] V24) from Last 3 Months Immunizations Name Administration [...] and older 04/13/2016,05/05/2013,05/03/2012,05/20,05/19/2010,05/13/2009,06/09/2008 ,05/24/2007,05/13/2006,05/17/2005 Influenza, Unspecified 06/23/2015,04/26/2014, [email or web address] SARS-CoV-2 COVID -19, vector-nr, [id number], preservative free [...] Bronchiectasis (CMS/HCC V24, CMS/HCC V28) 02/26/2008 DX:Bronchiectasis ([facility]) Family History Medical History Relation Name Comments Lung cancer Mother 50's Stomach cancer Paternal Grandmother Breast cancer Neg Hx Relation Name Status Comments Father (Age 65) NH at age 49, stroke Mother (Age 63) [...] care for your loved ones. For example, child care center administrator or elderly care for an older adult? [...] Sign Reading Time Taken Comments Blood Pressure 116/63 03/31/2025 8:25 AM EDT Pulse 84 03/31/2025 8:25 AM EDT Temperature 35.9 C (96.6 F) 03/31/2025 8:25 AM EDT Respiratory Rate 14 03/31/2025 8:25 AM EDT Oxygen Saturation 98% 03/31/2025 8:25 AM EDT Inhaled Oxygen Concentration - - Weight 43.5 kg (95 lb 12.8 oz) 03/31/2025 8:25 A M EDT Height 157.5 cm (5' 2 ) 03/31/2025 8:25 AM EDT Body Mass Index 17.52 03/31/2025 8:25 AM EDT Plan of Treatment Upcoming Encounters Date Type Department Care Team (Late st Contact Info) Description 05/03/2025 8:40 AM EDT Appointment Radiology Department - [address] [phone] 07/28/2025 10:00 AM EST Appointment Bone Density - [address] [phone] 10/06/2025 8:00 AM EST Office Visit Adult Medicine East - [address] [phone] Andre Katz, LISA [address] [place] [phone] Health Maintenance Due Date Last Done Comments RSV Immunization Adult Patients (1 - 1-dose 75+ series) 2021 09/17/2023 Medicare Annual Wellness Visit 07/21/2022 Osteoporosis Screening (Bone Density Screening) 06/30/2024 06/30/2019 COVID-19 Vaccine ( season) 2025 05/19/2022, 11/25/2021, 06/13/2021, Additional history exists Influenza Vaccine (#1) 2025 , 05/19/2022, 06/12/2021, Additional history exists Falls Risk Assessment 03/31/2026 03/31/2025 , 03/31/2025, 10/16/2023 Social Influencers of Health Screening 03/31/2026 03/31/2025 Cholesterol Screening (Lipid Panel) 09/25/2029 09/25/2024, 09/16/2023 DTaP,Tdap,and Td Vaccines (4 - Td or Tdap) 01/20/2035 01/20/2025, 02/24/2018, 04/01/2007 Hepatitis C Screening Completed 02/20/2013 Pneumococcal Vaccine: 50+ Years Completed 02/25/2015, 03/09/2011, 06/08/2003 Zoster Vaccines Completed 01/30/2023, 07/13, 02/25/2009 RSV Immunization Patients Under 20 months Aged Out 09/17/2023 No longer eligible based on patient's age to complete this topic Depression Screening Completed 03/31/2025, 09/16/19 24 HIB Vaccines Aged Out No longer eligi [...] Procedure Name Priority Date/Time Associated Diagnosis Comments CBC WITH AUTO DIFFERENTIAL Routine 03/31/2025 9:08 AM EDT Screening for osteoporosis Abnormal CT scan, chest Anxiety Asbestos exposure Bronchiectasis without complication (CMS/HCC V24, CMS/HCC V28) Bronchiectasis with acute lower respiratory infection (CMS/HCC V24, CMS/HCC V28) Chronic bronchitis, unspecified chronic bronchitis type (CMS/HCC V24, CMS/HCC V28) Ground glass opacity present on imaging of lung Other hyperlipidemia Osteoporosis, unspecified osteoporosis type, unspecified pathological fracture presence CBC AND DIFFERENTIAL Routine 03/31/2025 9:08 AM EDT Screening for osteoporosis Abnormal CT scan, chest Anxiety Asbestos exposure Bronchiectasis without complication (CMS/HCC V24, CMS/HCC V28) Bronchiectasis with acute lower respiratory infection (CMS/HCC V24, CMS/HCC V28) Chronic bronchitis, unspecified chronic bronchitis type (CMS/HCC V24, CMS/HCC V28) Ground glass opacity present on imaging of lung Other hyperlipidemia Osteoporosis, unspecified osteoporosis type, unspecified pathological fracture presence PROTHROMBIN TIME WITH INR Routine 03/31/2025 9:08 AM EDT Screening for osteoporosis Abnormal CT scan, chest Anxiety Asbestos exposure Bronchiectasis without complication (CMS/HCC V24, CMS/HCC V28) Bronchiectasis with acute lower respiratory infection (CMS/HCC V24, CMS/HCC V28) Chronic bronchitis, unspecified chronic bronchitis type (CMS/HCC V24, CMS/HCC V28) Ground glass opacity present on imaging of lung Other hyperlipidemia Osteoporosis, unspecified osteoporosis type, unspecified pathological fracture presence Purpura ([facility]/HCC V24) ACTIVATED PARTIAL THROMBOPLASTIN TIME Routine 03/31/2025 9:08 AM EDT Screening for osteoporosis Abnormal CT scan, chest Anxiety Asbestos exposure Bronchiectasis without complication (CMS/HCC V24, CMS/HCC V28) Bronchiectasis with acute lower respiratory infection (CMS/HCC V24, CMS/HCC V28) Chronic bronchitis, unspecified chronic bronchitis type (CMS/HCC V24, CMS/HCC V28) Ground glass opacity present on imaging of lung Other hyperlipidemia Osteoporosis, unspecified osteoporosis type, unspecified pathological fracture presence Purpura ([facility]/HCC V24) LIPID PANEL WITH REFLEX TO DIRECT LDL [...] Recently Relevant to Health Maintenance Results * (ABNORMAL) CBC auto differential (03/31/2025 9:08 AM EDT) WBC 9.0 4.8 - 10.8 K/mcL LAB HEMETOLOGY METHOD 03/31/2025 10:24 AM [facility] RBC 3.90 3.80 - 4.80 M/[facility] LAB [facility]OLOG[facility]25 [facility] Hemoglobin 11.6 11.5 - 16.0 g/dL LAB HEMETOLOGY METHOD 03/31/2025 10:24 AM [facility] Hematocrit 36.3 35.0 - 47.0 % LAB HEMETOLOGY METHOD 03/31/2025 10:24 AM [facility] MCV 92.1 79.0 - 98.0 FL LAB HEMETOLOGY METHOD 03/31/2025 10:24 AM [facility] MCH 29.4 27.0 - 32.0 pcg LAB HEMETOLOGY METHOD 03/31/2025 10:24 AM [facility] MCHC 32.0 32.0 - 37.0 g/dL LAB HEMETOLOGY METHOD 03/31/2025 10:24 AM [facility] RDW 14.5 11.0 - 15.0 % LAB HEMETOLOGY METHOD 03/31/2025 10:24 AM [facility] Platelets 401(H) 130 - 400 K/mcL LAB HEMETOLOGY METHOD 03/31/2025 10:24 AM [facility] MPV 9.7 7.0 - 11.0 FL LAB HEMETOLOGY METHOD 03/31/2025 10:24 AM [facility] NRBC 0.0 <1.0 % LAB HEMETOLOGY METHOD 03/31/2025 10:24 AM [facility] NRBC Absolute 0.00 <0.10 K/mcL LAB HEMETOLOGY METHOD 03/31/2025 10:24 AM [facility] Neutrophils Relative 69.1 % LAB HEMETOLOGY METHOD 03/31/2025 10:24 AM [facility] Lymphocytes Relative 15.3 % LAB HEMETOLOGY METHOD 03/31/2025 10:24 AM [facility] Monocytes Relative 12.4 % LAB HEMETOLOGY METHOD 03/31/2025 10:24 AM [facility] Eosinophils Relative 2.2 % LAB HEMETOLOGY METHOD 03/31/2025 10:24 AM [facility] Basophils Relative 0.8 % LAB HEMETOLOGY METHOD 03/31/2025 10:24 AM [facility] Immature Granulocytes Relative 0.2 % LAB HEMETOLOGY METHOD 03/31/2025 10:24 AM [facility] Neutrophils Absolute 6.22 1.50 - 7.00 K/mcL LAB HEMETOLOGY METHOD 03/31/2025 10:24 AM [facility] Lymphocytes Absolute 1.38 1.00 - 5.00 K/mcL LAB HEMETOLOGY METHOD 03/31/2025 10:24 AM [facility] Monocytes Absolute 1.12(H) 0.20 - 1.00 K/mcL LAB HEMETOLOGY METHOD 03/31/2025 10:24 AM EDT [facility] Eosinophils Absolute 0.20 0.00 - 0.50 K/[facility] LAB HEMETOLOGY METHOD 03/31/2025 10:24 AM EDT [facility] Basophils Absolute 0.07 0.00 - 0.20 K/[facility] LAB HEMETOLOGY METHOD 03/31/2025 10:24 AM EDT [facility] Immature Granulocytes Absolute 0.02 0.00 - 0.03 K/[facility] LAB HEMETOLOGY METHOD 03/31/2025 10:24 AM EDT [facility] Blood Venous blood specimen / Unknown Venipuncture / Unknown 03/31/2025 9:08 AM EDT 03/31/2025 9:08 AM EDT Andre GONZALEZ LAB BLOOD ORDERABLES Candace l Result Performing Organization Address City/[facility]/ZIP Co de Phone Number [facility] [address] [place] [address], [place] [phone] * Activated partial thromboplastin time (03/31/2025 9:08 AM EDT) [facility] aPTT 32.4 24.1 - 39.3 sec LAB COAGULATION METHOD 03/31/2025 10:28 AM EDT [facility] Blood Venous blood specimen / Unknown Venipuncture / Unknown 03/31/2025 9:08 AM EDT 03/31/2025 9:08 AM EDT Andre GONZALEZ LAB BLOOD ORDERABLES Candace l Result [facility] [address] [place] [address], [place] [phone] * Prothrombin time with INR (03/31/2025 9:08 AM EDT) Protime 11.4 10.6 - 13.9 sec LAB COAGULATION METHOD 03/31/2025 10:28 AM EDT [facility] INR 0.9 LAB COAGULATION METHOD 03/31/2025 10:28 AM EDT [facility] Blood Venous blood specimen / Unknown Venipuncture / Unknown 03/31/2025 9:08 AM EDT 03/31/2025 9:08 AM EDT Andre GONZALEZ LAB BLOOD ORDERABLES Candace l Result [facility] [address] [place] [address], [place] [phone] * Lipid panel with reflex to direct LDL (09/25/2024 9:48 AM EST) Pathologist [facility] Cholesterol 186 0 - 200 mg/dL LAB CHEMISTRY METHOD 09/25/2024 1:05 PM [facility] Triglycerides 45 0 - 150 mg/dL LAB CHEMISTRY METHOD 09/25/2024 1:05 PM [facility] HDL 93 >=40 mg/dL LAB CHEMISTRY METHOD 09/25/2024 1:05 PM [facility] LDL Calculated 84 0 - 100 mg/dL LAB CHEMISTRY METHOD 09/25/2024 1:05 PM [facility] VLDL Cholesterol Flip 9 mg/dL LAB CHEMISTRY METHOD 09/25/2024 1:05 PM [facility] Non HDL Chol. (LDL+VLDL) 93 <145 mg/dL LAB CHEMISTRY METHOD 09/25/2024 1:05 PM [facility] Chol/HDL Ratio 2.0 0.0 - 4.4 LAB CHEMISTRY METHOD 09/25/2024 1:05 PM [facility] Blood Venous blood specimen / Unknown Venipuncture / Unknown 09/25/2024 9:48 AM EST 09/25/2024 9:48 AM EST Andre GONZALEZ LAB BLOOD ORDERABLES Candace l Result [facility] ([facility] [address] [place] [address], [place] [phone] * Falls Risk Assessment (10/16/2023) Falls Risk Assessment abstracted Historical Provider MD HEALTH MAINTENANCE Final Result * Depression Screening (09/16/2023) Depression Screening abstracted Historical Provider MD HEALTH MAINTENANCE Final Result * DXA BONE DENSITY STUDY 1+ SITS AXIAL SKEL (06/30/2019 9:48 AM EST) Anatomical Region Laterality Modality Bone Densitometr y 05/11/2019 12:3 2 PM EDT Narrative 06/30/2019 4:04 PM EST BONE DENSITY Lumbar Spine T-score is -1.4 [...] should be classified as having osteoporosis. [facility] Department of Internal Medicine recommends using National [...] Walshould be classified as having osteoporosis. [facility] Department of Internal Medicine recommendsusing National Osteoporosis [...] fracture risk by FRAX. Robert Miller MD IMG DXA PROCEDURES Final Result * Hepatitis C Screening (02/20/2013) Hepatitis C Screening abstracted Historical Provider MD HEALTH MAINTENANCE Final Result from Last 3 Months or Most Recently Relevant to Health Maintenance Insurance MEDICARE [facility] Care Teams Electric Stop Installer Relationship Specialty Start Date End Date Andre Katz PA [address] [place] [address] PCP - General Internal Medicine 08/18/20
--- OUTSIDE RECORDS SUMMARY | 2025-04-21 10:29 | XMS_ITS ---
Author Name [facility] Organization Unknown Care Team Organization Name Specialty Phone Email Start Date End Da te [facility] Andre Katz Primary Care 01/18/2023
== END 2025-04-21 09:12 | disposition home or self-care (01) ==
LOC: HO.HSM 08:55
PROVIDERS: PCP Physician Assistant Medical; Referring Provider Physician Assistant Medical; Visit Provider Registered Nurse
DX: G31.84 Mild cognitive impairment of uncertain or unknown etiology (principal)
CPT/HCPCS: 99214

== ENCOUNTER → 2025-04-21 08:55 | Outpatient (BNVA) | payer MEDICARE, SELFPAY | PROVIDERS: PCP Physician Assistant Medical; Referring Provider Physician Assistant Medical; Visit Provider Registered Nurse | DX: G31.84 Mild cognitive impairment of uncertain or unknown etiology (principal); F32.A Depression, unspecified; F41.9 Anxiety disorder, unspecified | CPT/HCPCS: 99212 ==

== ENCOUNTER 2025-07-21 09:08 | Outpatient (AMB) | payer MEDICARE, SELFPAY ==
--- NOTE | 2025-07-21 09:16 | A.OFFVIS_ITS ---
Intake Visit Reasons: 3m MCI Allergies No Known Allergies Allergy (Verified 07/21/25 09:16) Medication List - Last Reconciled 07/21/25 by Emma Javier CNP albuterol sulfate 90 mcg/actuation 2 puffs PO Q6H PRN amitriptyline 25 mg PO BEDTIME atorvastatin 10 mg PO DAILY brimonidine 0.15% 1 drp ophthalmic (eye) ONCE donepezil 10 mg PO DAILY 90 days dorzolamide-timolol 22.3-6.8 mg/mL 1 drp ophthalmic (eye) BID btqtqfolfcm-hoprhxvis-sidhhigq 100-62.5-25 mcg (Trelegy Ellipta) 1 inh inhalation DAILY qvdboykfyii-scnqwoncu-dsokukop 100-62.5-25 mcg (Trelegy Ellipta) 1 inh inhalation DAILY 30 days guaifenesin ER (Mucinex) 1,200 mg PO ONCE PRN guaifenesin ER (Mucinex) 1,200 mg PO BID 15 days lorazepam 1 mg PO DAILY PRN memantine (Namenda) 5 mg PO BID 90 days multivitamin 1 tab PO DAILY netarsudil-latanoprost 0.02-0.005 % drps ophthalmic (eye) sertraline 50 mg PO DAILY 90 days trazodone 50 mg PO BEDTIME PRN HPI Comments Details: 80-year-old woman with glaucoma, depression, anxiety, and MCI. She lives with a roommate since being for over 15 years. She has no children. She was taking memantine twice a day, no medication side effects. Memory was about the same. She was not sure she noticed any improvement in memory with medication. She was still managing her finances and driving without issue. Motivation and energy were not so good lately. Appetite was okay. No falls. Sleep at night was okay. [facility] Medical History (Updated 04/21/25 @ 08:58 by Emma Javier CNP) Anxiety and depression HLD (hyperlipidemia) MCI (mild cognitive impairment) Acute rhinosinusitis COPD exacerbation Chronic bronchitis Bronchiectasis COPD (chronic obstructive pulmonary disease) Allergic rhinitis Social History Patient Tobacco Use Status: Former Tobacco user Years Smoked: 20 Review of Systems Const Denies chills, Denies daytime sleepiness, Reports difficulty sleeping, Denies fatigue, Denies fever(s), Denies frequent falls, Denies headache(s), Denies increased appetite, Denies poor appetite, Denies snoring, Denies weakness, Denies weight gain and Denies weight loss Eyes Denies loss of vision ENT Denies vertigo, Denies dizziness, Denies headache(s) and Denies neck pain Card Denies chest pain at rest, Denies chest pain with activity, Denies syncope, Denies leg edema, Denies palpitations, Denies dyspnea and Denies dyspnea on exertion Resp Denies cough, Denies dyspnea, Denies dyspnea on exertion and Denies snoring GI Denies abdominal pain, Denies constipation, Denies heartburn, Denies diarrhea and Denies nausea Denies urinary frequency, Denies urinary incontinence and Denies urinary urgency Musc Denies abnormal gait, Denies back pain, Denies myalgias, Denies arthralgias, Denies neck pain, Denies numbness and Denies tingling Neuro Denies abnormal gait, Denies vertigo, Denies dizziness, Denies syncope, Denies frequent falls, Denies headache(s), Denies lack of coordination, Denies loss of vision, Denies memory loss, Denies numbness, Denies Other visual disturbances, Denies restless legs, Denies seizure-like activity, Denies tingling, Denies paresthesias, Denies tremor(s) and Denies weakness Psych Reports anxiety, Reports depression, Denies auditory hallucinations, Denies memory loss and Denies visual hallucinations Endo Denies fatigue and Denies palpitations Physical Exam Const Other: General Appearance:? normal, in no acute distress. Heart:? S1, S2 normal, no murmurs. Lungs:? clear anteriorly and posteriorly. Musculoskeletal:? normal. Extremities:? no edema. Psych:? alert, as below. Neuro Other: Abnormal Neurological Findings:?MMSE 25/30. Mental Status: alert, as below. Cranial Nerves: Pupils are equal, round, and reactive to light. External ocular muscles are intact. Visual hughes are full, no ptosis. Face is symmetrical, no facial weakness or droop. Facial sensations are normal. Tongue protrudes in midline. Palate elevates symmetrically. Shoulder shrugging is normal Motor Examination: Normal muscle tone, bulk and strength. No atrophy or fasciculations. No drift of the extended upper extremities. DTR 2+. Plantars are flexor. Sensory Exam: Normal light touch, temperature, pinprick, vibration, and joint- position sensations. Rhomberg sign is absent. Coordination: No ataxia. No titubation. Gait Exam: Slow and cautious. Cerebellar Signs: Vpbzye-fc-jqph is okay. Extrapyramidal System: No tremor, rigidity with normal facial expressions. No bradykinesia. No bradyphrenia. Normal arm swing and posture. No propulsion or retropulsion. Speech: Normal. MMSE Level of Consciousness: Alert. Orientation: Knows correct year, month, date, day and season. Knows correct city, county and state. Knows correct location and floor. Registration: Able to register 3 objects. Attention: Serial 7's performed accurately to 93 Recall: Able to recall 2 out of 3 objects. Language: Normal spontaneous speech, fluency, repetition, naming, comprehension, reading, and writing. Total Score: 25/30. Results Reviewed Results Reviewed: 12/06/22 EEG- WNL 12/07/22 CT brain: Mild white matter chronic small vessel ischemic changes. Mild diffuse parenchymal volume loss the brain. Labs normal. Assessment & Plan Assessment & Plan (1) MCI (mild cognitive impairment): Code(s): G31.84 - Mild cognitive impairment of uncertain or unknown etiology Category: Medical Plan: Increase memantine 10mg 1 tablet twice a day. Continue donepezil 10mg 1 tablet at bedtime. Continue sertraline 50mg 1 tablet daily. Stay physically and socially active. Follow up in 3 months or sooner as needed. Medications: New memantine (Namenda) 10 mg PO BID 180 tabs 1RF 90 days Refilled donepezil 10 mg PO DAILY 90 tabs 1RF 90 days sertraline 50 mg PO DAILY 90 tabs 1RF 90 days Discontinued memantine (Namenda) Discontinued Reason: Doctor's Order 5 mg PO BID 90 days 180 tabs 0RF Coding Level of Care Code Est Pt Level 4 (85575) Diagnoses MCI (mild cognitive impairment) G31.84
== END 2025-07-21 09:27 | disposition home or self-care (01) ==
LOC: HO.HSM 09:09
PROVIDERS: PCP Physician Assistant Medical; Visit Provider Registered Nurse
DX: G31.84 Mild cognitive impairment of uncertain or unknown etiology (principal)
CPT/HCPCS: 99214

== ENCOUNTER → 2025-07-21 09:08 | Outpatient (BNVA) | payer MEDICARE, SELFPAY | PROVIDERS: PCP Physician Assistant Medical; Visit Provider Registered Nurse | DX: G31.84 Mild cognitive impairment of uncertain or unknown etiology (principal); F32.A Depression, unspecified; F41.9 Anxiety disorder, unspecified | CPT/HCPCS: 99212 ==